=== PATIENT | female | born 1985 | race Caucasian/White ===

== ENCOUNTER 2016-09-07 18:17 | Emergency (ER) | payer OTHER ==
[~2016-09-07] VITALS: Ht 170.2 cm; Wt 83.6 kg
[~2016-09-07 18:17] MED LIST: AMPH20TA5 PO; DOCO200C5 PO; DOCU-41 PO; FERR-83 PO; HYDROcodone-APAP 5-325 PO; IBUP-1827 PO; OMEP20CA11 PO; celexa PO
[2016-09-07 18:20] VITALS: BP 113/69; PULSE 103; RESP 16; O2SAT 100
--- NOTE | 2016-09-07 18:45 | ED.REPORT ---
HPI-Trauma Minor / Fall Date of Service Sep 07, 2016 ED Provider: Eusebio Wells MD Patient is a 30 year old female at 20 weeks with a history of hyperemesis gravidarum who presents to the ED with left arm pain/tingling after a mechanical ground level fall three hours ago. She now reports intermittent left arm numbness and tingling that is now resolving. The patient denies head trauma, loss of consciousness, abdominal trauma, vaginal discharge, vaginal bleeding, or other symptoms. Nursing Notes Stated Complaint: LEFT ARM NUMBNESS/ L&I Chief Complaint: Extremity Trauma Nursing Notes Reviewed: Yes Allergies: Coded Allergies: ketorolac tromethamine (Verified Allergy, Unknown, 09/07/16) Scheduled ([celexa]) 30 PO DAILY Amphet Asp/Amphet/D-Amphet (Adderall) 20 Mg Tablet 20 MG PO DAILY DOCOSAHEXANOIC ACID-Expunged Drug, Do Not Brown ( DHA-Expunged Drug, Do Not Renew!) 200 Mg Capsule 200 MG PO DAILY Docusate Sodium (Colace) 100 Mg Capsule 100 MG PO BID Omeprazole (Omeprazole) 20 Mg Capsule.dr 20 MG PO BID Scheduled PRN ([HYDROcodone-APAP 5-325]) 1 TABLET TABLET 1-2 TABLET PO Q8H PRN PRN For Pain Ferrous Sulfate (Ferrous Sulfate) 325 Mg Tablet 325 MG PO BID PRN PRN anemia Ibuprofen (Ibuprofen) 600 Mg Tablet 600 MG PO Q6H PRN PRN For Mild Pain General Time Seen by MD: 18:44 Chief Complaint Fall, Other (Left Arm Pain) Hx Obtained From: Patient Arrived By: Walk-in Onset Occurred: 1 - 4 hours ago Symptom Duration: Since onset Caused by: Accidental, Fall on ground Location: Arm left Quality: Painful Severity: Current: Moderate Severity: Maximum: Moderate Pertinent Negative: Relieved by nothing Context: Immunizations Unknown Recent Healthcare: No recent doctor visit Past Medical History Past Medical History Hyperemesis gravidarum Denies other Past Surgical History Denies Smoking History Former Smoker Ambulatory Status Independent Review of Systems Review of Systems Note: + Intermittent left arm tingling - Head trauma, abdominal trauma Constitutional: Denies: Fever Respiratory: Denies: Non-productive cough, Shortness of breath Musculoskeletal: Reports: Extremity pain (Left arm) Neurologic: Reports: Numbness (Left arm, intermittent), Denies: Change LOC, Headache Complete sys rev & neg: except as marked. GI: Denies: Diarrhea, Vomiting Female: Denies: Vaginal bleeding - abnl, Vaginal discharge Physical Exam Initial Vital Signs Vital Signs (First) Date Time Temp Pulse Resp B/P Pulse Ox O2 Delivery O2 Flow Rate FiO2 09/07/16 18:20 35.9 103 16 113/69 100 Room Air Initial VS: Reviewed Skin: Warm, Dry, No cyanosis Psychiatric: Mood/affect normal, Behavior normal, Normal thought content General/Constitutional: Awake, Alert, No acute distress Neck: Atraumatic, Supple, Full range of motion, Non-tender Head / Eyes: Atraumatic, Normocephalic ENT: Atraumatic, Airway patent, Mucous membranes moist Respiratory / Chest: Breath sounds NL, Breath sounds = bilat, No respiratory distress Cardiovascular: Heart rate NL, Regular rhythm, Heart sounds NL, No gallop, No murmurs, No rubs, Peripheral circulation NL (Good radial pulses) Abdomen: Soft, Non-tender, No distention Gravid uterus consistent w/ 20 week Back: Atraumatic, Inspection NL, Non-tender, No midline vertebral tend Upper Extremity / MS: Full range of motion (Passive and active), Neurologic intact (Sensation normal), Vascular intact Lower Extremity / Pelvis / MS: Atraumatic, Inspection NL Neurologic: Oriented X3, Speech NL, No motor deficits (5/5 Cocoa Bean Cleaner strength bilaterally), No sensory deficits Re-Eval/Medical Decision Med Decision/Clinical Course Patient is a 30 year old female at 20 weeks with a history of hyperemesis gravidarum who presents to the ED with left arm pain/tingling after a mechanical ground level fall three hours ago. She now reports intermittent left arm numbness and tingling that is now resolving. The patient denies head trauma, loss of consciousness, abdominal trauma, vaginal discharge, vaginal bleeding, or other symptoms. Here in the emergency department the patient is afebrile with stable vital signs and examination as above. She is not having any vaginal bleeding or cramping and monitoring is reassuring. She is neurovascularly intact in the affected extremity. Full range of motion and no evidence of fracture. Presentation seems most consistent with transient peripheral neurapraxia. Patient advised to apply ice packs and hot packs. She will follow-up with her primary care physician. Prior to discharge follow-up and return precautions were reviewed in detail with the patient who verbalized understanding and agreement with the plan. The patient was discharged in stable condition. Re-Evaluation/Progress : Time of Eval: 19:40 Patient Status: Condition improved Re-Evaluation/Progress Note: Discussed with patient physical exam findings, diagnosis, and plan for discharge. Follow-up and return to the ER instructions given. Patient agrees with plan for care and all questions were addressed. Counseled Regarding: Diagnosis, Need for follow-up, When/why to return to ED Discharge & Departure Impression: Primary Impression: Neurapraxia of left upper extremity Additional Impressions: Weeks of gestation: 20 weeks Qualified Code: Z3A.20 - 20 weeks gestation of Fall from ground level Disposition: Home Discharge Condition All VS Reviewed: Yes Condition: Improved Additional Instructions: Thank you for seeking care at the emergency room. It is difficult for us to make definitive diagnoses in the ED but we believe that you stretched a nerve in your arm. Our primary goal today in the ED was to evaluate you for any life-threatening conditions. Your evaluation was reassuring. Your symptoms should resolve on their own. Avoid heavy lifting for 2-3 days. You should follow-up with your primary doctor in the next week. You should return to the ED immediately if you develop vaginal bleeding, abdominal pain, hand weakness, worsened numbness, fevers, vomiting, cough, shortness of breath, chest pain, lightheadedness, weakness or any other concerning signs or symptoms. Thank you for letting us partake in your care today. Referrals: Jl Vincent MD (PCP) Louise Attestation Portions of this note were transcribed by Philly Segundo. I, Dr. Wells, personally performed the history, physical exam, and medical decision-making; I reviewed and confirmed the accuracy of the information in the transcribed note. Signed by: Louise Mooney, 09/07/2016, 22:20 copies to: Jl Vincent MD, Beck O MD Sep 07, 2016 18:45 PHILLY SEGUNDO Sep 07, 2016 19:39
[2016-09-07 19:45] VITALS: BP 105/65; PULSE 73; RESP 22; O2SAT 73
== END 2016-09-07 19:57 | disposition home or self-care (01) ==
LOC: SED 18:17
DX: O9A.212 Injury, poisoning and certain other consequences of external causes complicating pregnancy, second trimester (principal); S44.92XA Injury of unspecified nerve at shoulder and upper arm level, left arm, initial encounter; W18.39XA Other fall on same level, initial encounter; Y93.89 Activity, other specified; Y92.69 Other specified industrial and construction area as the place of occurrence of the external cause; Y99.0 Civilian activity done for income or pay; Z87.891 Personal history of nicotine dependence; Z3A.20 20 weeks gestation of pregnancy

== ENCOUNTER 2016-12-27 09:50 | Inpatient (IN) | payer OTHER ==
[~2016-12-27] VITALS: Ht 170.2 cm; Wt 87.5 kg
[2016-12-27 11:16] LABS: Mean Corpuscular Hemoglobin 31.3 pg (27.0-35.0); Mean Corpuscular Volume 91.9 fL (81-100)
[2016-12-27] MEDS ORDERED: Lactated Ringer's 1,000 ML IV SCH ×3 (11:54→21:51)
[2016-12-27] MEDS ORDERED: Oxytocin 30 Units/500 mL LR 30 UNITS in IV Premix 1 EACH IV PRN (11:55)
[2016-12-27] MEDS ORDERED: diphenhydrAMINE 50 mg Capsule PO PRN (11:55)
--- NOTE | 2016-12-27 12:03 | DRSVH ---
PROCEDURE: US OB 1 OR MORE FETUS LIMITED INDICATIONS: ABRUPTION/DEMISE OUTSIDE/PRIOR DATING DATA: Last menstrual period (LMP): 03/28/2016. LMP-based estimated date of delivery (KALANI): 01/02/2017. First dating scan (date and location): 08/01/2016. Estimated date of delivery (KALANI) from first dating scan: 01/17/2017. TECHNIQUE: Real-time scanning was performed of the fetus, with image documentation and biometric measurements. COMPARISON: [facility], US, US OB FOLLOW UP PER [employer], 08/01/2016, 12:23. FINDINGS: General: A single intrauterine gestation is present. No cardiac activity is seen. Presentation: Vertex left oblique. Placenta: Placental position is low anterior, without previa. OB-DENTIST Ultrasound Procedure Report Summary Fetus Summary Estimated Gestational Age from first dating scan: 37 weeks, 0 days Findings(Amniotic Sac) Amniotic Fluid Index: 19.10 cm Pelvis and Uterus Cervix Length: Not well seen Measurement variability in biometric dating: +/- 7 days from 14 weeks to 15 weeks 6 days gestation, + /- 10 days from 16 weeks to 21 weeks 6 days gestation, +/- 2 weeks from 22 weeks to 27 weeks 6 days g estation, +/- 3 weeks for 28 weeks gestation or later. Other: Not applicable. IMPRESSION: demise. Examination observed by Dr. Vincent. Dictated by: Yomi Barlow M.D. on 12/27/2016 at 12:00 Approved by: Yomi Barlow M.D. on 12/27/2016 at 12:02
[2016-12-27] MEDS ORDERED: Lactated Ringer's 500 ML IV ONE (14:29)
[2016-12-27] MEDS ORDERED: fentaNYL-PF 50 mCg/mL 2 mL Inj IVPUSH PRN (14:30)
[2016-12-27] MEDS ORDERED: Atropine 1 mg/10 mL (Code) Syringe IVPUSH PRN (14:30)
[2016-12-27] MEDS ORDERED: EPHEDrine Sulfate 50 mg/mL Inj IVPUSH PRN (14:30)
[2016-12-27] MEDS ORDERED: fentaNYL 2 mCg/mL-Bupiv 0.125% 100 ML EPIDURAL SCH (14:30)
[2016-12-27] MEDS ORDERED: Ondansetron 2 mg/mL 2 mL Inj IVPUSH PRN (14:30)
--- NOTE | 2016-12-27 15:14 | PCM.HPANE ---
Patient Data Date of Service: Dec 27, 2016 Surgeon Admitting Provider:Jl Vincent MD Attending Provider:Jl Vincent MD Primary Care Physician:Misty Bonds Other Provider:Bushra Killian Anesthesia Reason for Visit Demise DEMISE Ht/WT & BMI Weight (Kilograms): 87.5 Body Mass Index 30.2 Allergies Coded Allergies: ketorolac tromethamine (Verified Allergy, Unknown, 09/07/16) Past Anesthesia History Anesthesia History: Denies:: Abnormal Airway, Anesthesia Reactions Diabetes History Hx Diabetes?: No MRSA MRSA: No Medications Hypertension Medication: No Home Meds Incl Beta Cheryl: No Active Scripts Ferrous Sulfate 325 Mg [id number] Mg PO BID PRN anemia #60 TABLET Ref 2 Prov:Malika Gipson MD 04/21/15 [Hydrocodone/Acetaminophen] ([place] 5-325)1 TABLET TABLET No Conflict Check1-2 Tablet PO Q8H PRN For Pain #30 TABLET Prov:Malika Gipson MD 04/21/15 Ibuprofen 600 Mg Otoshw157 Mg PO Q6H PRN For Mild Pain #30 TABLET Prov:Malika Gipson MD 04/21/15 Docusate Sodium (Colace)100 Mg Dblgren902 Mg PO BID #60 CAPSULE Ref 2 Prov:Malika Gipson MD 04/21/15 Reported Medications Omeprazole 20 Mg Capsule.dr20 Mg PO BID Ref 0 04/19/15 Amphet Asp/Amphet/D-Amphet (Adderall)20 Mg Hfezex68 Mg PO DAILY Ref 0 04/19/15 [celexa] No Conflict Check30 Po Daily 04/19/15 DOCOSAHEXANOIC ACID-Expunged Drug, Do Not Brown ( DHA-Expunged Drug, Do Not Renew!)200 Mg [id number] Mg PO DAILY 05/10/12 History History of ENT Problems?: No HEENT History: Denies:: Abnormal Airway Denture Type: None Teeth Condition: Within Normal Limits Hx of Heart Problems?: No Cardiovascular History: Denies:: Congestive Heart Failure Hypertension Hx of Respiratory Problem?: No Respiratory History: Denies:: Tuberculosis Hx Neurologic Problems?: No Hx of GI Problems?: No Hx of Problems?: No HX of Peritoneal Dialysis: No Female Hx: Positive for:: Currently ( demise at 37 weeks) Hx Musculoskeletal Problems?: No Hx of Psycho/Social Problems?: No Psycho Social History: Positive for:: Hx Depression Hx Surgeries?: No Hx Any Other Health Problems?: Yes Other History: Positive for:: Hospitalization Hx Diabetes: No Hx Alcohol Use: NoHx Substance Use: No Smoking Status: Former Smoker Have You Smoked inLast 12 mo: Yes Stop/Bang Treated for Sleep Apnea?: No Do You Have a CPAP Machine?: No MAYA Risk Assessment: Low Risk, <3 Yes Risk Assessment Category Category 1A: Patient has history of documented sleep apnea, and HAS NOT received any narcotic, sedative or anesthesia administration during this stay. Category 1B: Patient has history of documented sleep apnea, and HAS received any narcotic , sedative or anesthesia administration during this stay Category 2: Patient has SUSPECTED Obstructive Sleep Apnea, and HAS received any narcotic , sedative or anesthesia administration during this stay. Category 3: Patient has SUSPECTED Obstructive Sleep Apnea and HAS NOT received narcotic, sedative or anesthesia administration during this stay. Category 4: Outpatient in Procedural Areas with known sleep apnea or who screen positive for High Risk via the STOP/BANG questionnaire. Exam Exam General Appearance: Alert, Oriented X3, Cooperative HEENT/AIRWAY: Neck Movement (normal) Lungs: Clear to Auscultation, Normal Air Movement Heart: Regular Rate/Rhythm, Normal S1, Normal S2 Meds/Labs/Diagnostics Admission Meds Current Medications Lactated Ringer's (Lr) 1,000 ml @ 125 mls/hr Q8H IV Last administered on t 12:21; Start 12/27/16 at 11:54 Labs Test 12/27/16 10:42 12/27/16 11:56 White Blood Count 5.0th/mm3 (3.8-10.1) Red Blood Count 3.58mil/mm3 (3.90-5.20) Hemoglobin 11.2g/dL (12.0-15.6) Hematocrit 32.9% (35.0-46.0) Mean Corpuscular Volume 91.9fL (81-100) Mean Corpuscular Hemoglobin 31.3pg (27.0-35.0) Mean Corpuscular Hemoglobin Concent 34.0% (32.0-37.0) Red Cell Distribution Width 14.3% (12.3-15.4) Platelet Count 147bil/L (150-400) Urine Opiates Screen Negative Urine Methadone Screen Negative Urine Barbiturates Screen Negative Urine Amphetamines Screen Negative Urine Benzodiazepines Screen Negative Urine Cocaine Metabolite Screen Negative Urine Cannabinoids Screen Negative Plan Impression Patient chart reviewed, patient interviewed and anesthestic plan with risks, benefits, and alternatives discussed, and informed consent obtained. NPO per Anesth. Guidelines: No (OB) ASA Physical Status: ASA2 Mod Systemic Disease Anesthetic Plan: Epidural Bene/Risks/Altern/Consents: Yes HP Complete Prior to Induction: Yes Other epidural for pain control for delivery of 37 week demise Malcolm Curry MD Dec 27, 2016 14:29
[2016-12-27] MEDS ORDERED: Sodium Chloride LOK Flush 10 mL Syringe IVFLUSH SCH (16:30)
--- NOTE | 2016-12-27 16:38 | HP ---
[address] [address] HISTORY AND PHYSICAL PATIENT: MIRIAN BRUNSON : 1985 MR#: [id number] ADMIT: 12/27/2016 JOB ID: [id number] CHIEF COMPLAINT: demise. HISTORY OF PRESENT ILLNESS: The patient is a 31-year-old who came in today for a visit at 37 weeks. She had not been seen since 22 weeks and had generally been feeling well until about five days ago. At that time she was having some contractions. She came to Labor and Delivery and had a reassuring workup and was discharged home with plans for a followup office visit. Today we started catching up on various aspects related to her , including antibody screen given that she is Rh negative. We were going to do RhoGAM. We were going to do random glucose but she had not had any movement for two days. There were no heart tones and a bedside ultrasound at the clinic did not show heart movement. I recommended she come to Labor and Delivery for further evaluation and presumptive induction for near-term demise. At the hospital she had a ultrasound performed which confirmed my bedside ultrasound. There is no obvious placental abnormality. PAST MEDICAL HISTORY: Positive for ADHD and she had taken Adderall in early but discontinued due to inadequate followup. Also depression and anxiety taking citalopram 40 mg daily. SOCIAL HISTORY: A former smoker. No alcohol since . No drug use. History of varicella. but her significant other is in custodial and she is currently living at home with her parents and has twins. OBSTETRIC HISTORY: Twin gestation delivered at 37 weeks by induction with normal spontaneous vaginal delivery on both deliveries. PAST SURGICAL HISTORY: Negative. FAMILY HISTORY: Noncontributory. PHYSICAL EXAMINATION: Heart: Regular rate and rhythm, with no murmurs appreciated. Lungs: Clear to auscultation, with good air movement. Abdomen: Soft and nontender. Ultrasound done at the clinic per above with no heart movement. Cervical exam: Soft, approximately 2 cm, very posterior, 50% effaced. LABORATORY: She had a white blood cell count of 5, hematocrit 32.9, and platelets 147. Urine drug screen was negative for all tests. Antibody screen test was also negative. ASSESSMENT: A 31-year-old at 37 weeks gestation with a demise at term. There is not a clear etiology at this point. We are going to continue to proceed with induction. She is currently taking Pitocin and has requested an epidural for comfort. Will probably proceed with artificial rupture of membranes and continue active management of induction to try and hasten delivery. We have discussed some of the issues surrounding the grief and anxiety and I have also discussed the case with her usual primary provider, ILIR Shepard, at our clinic.
--- NOTE | 2016-12-27 18:45 | PCM.PNOBIP ---
Subjective Date of Service Dec 27, 2016 Delivery plan: Spontaneous Vaginal Delivery Visit History Demise at visit this morning, here for induction. Epidural working well. ROM about 30 minutes ago, clear. No fever/chills. No complaints. Pain Management: Epidural Gastrointestinal: No N/V Labs Laboratory Tests 12/27/16 10:42: White Blood Count 5.0, Red Blood Count 3.58, Hemoglobin 11.2, Hematocrit 32.9, Mean Corpuscular Volume 91.9, Mean Corpuscular Hemoglobin 31.3, Mean Corpuscular Hemoglobin Concent 34.0, Red Cell Distribution Width 14.3, Platelet Count 147 Exam Vital Signs Vital Signs Contraction frequency in minutes: MVUs: Vital Signs: VS reviewed, stable Heart Tracings Heart Tones Baseline bpm Tocometry/IUPC Contraction frequency in minutes: 2 MVUs: Sterile Vaginal Exam Not performed at this visit. Exam General: Alert, Oriented X3, Cooperative, No Acute Distress OB Intrapartum Assessment/Plan Intrapartum plan: Continue expected management Pain Evaluation: Adequate Pain Control Jl Vincent MD Dec 27, 2016 18:45
[2016-12-27] MEDS ORDERED: HYDROcodone-APAP 5-325 mg Tablet PO PRN (21:55)
[2016-12-27] MEDS ORDERED: Carboprost 250 mCg/mL Inj IM PRN (21:55)
[2016-12-27] MEDS ORDERED: Oxytocin 10 Unit/mL Inj IM PRN (21:55)
[2016-12-27] MEDS ORDERED: Methylergonovine 0.2 mg/mL Inj IM PRN (21:55)
[2016-12-27] MEDS ORDERED: Hemorrhage Kit, Post Partum XX ONE (21:55)
--- NOTE | 2016-12-27 22:59 | OP ---
[address] [address] OPERATIVE REPORT PATIENT: MIRIAN BRUNSON : 1985 MR#: [id number] ADMIT: 12/27/2016 JOB ID: [id number] DATE OF SURGERY: 12/27/2016 PREOPERATIVE DIAGNOSIS(ES): POSTOPERATIVE DIAGNOSIS(ES): SURGEON: Jl Vincent MD DELIVERY NOTE: 1. Delivery: Normal spontaneous vaginal delivery over an intact perineum with a known demise. 2. Anesthesia: Epidural anesthesia. 3. Physician: Jl Vincent MD. 4. Baby: Generally normal appearing baby with relative recent demise based on visual exam and a twisted cord insertion and apparent cord accident without other gross abnormalities. 5. Uterus: The cord was friable so manual exploration of the uterus was performed. Placenta was extracted without difficulty as a complete unit. 6. Description: The patient is a 31-year-old G3, P2 with previous twins and hemmorhage and Rh negative status. complicated by Social Support Issues, Hx of Depression and ADHD.. Mother had been on lost to followup for care and had not been seen since 22 weeks, but came this morning for her visit. She had a labor and delivery visit for contractions a few days earlier with reassuring workup at that time. This morning, she had said the baby had not moved for a couple of days and there were no heart tones and ultrasound in the clinic showed no heartbeat, and she was sent to the hospital for induction. Induction proceeded normally with Pitocin augmentation and artificial rupture of membranes. When I was called for delivery the baby was and was delivered in two pushes without difficulty. The cord was transected and cut. There was difficulty with the placenta delivery and the cord was friable and falling apart so manual exploration and extraction of the placenta was performed without difficulty. Bimanual massage was performed. There is no significant bleeding at this point. Mother will be spending time with the baby now. Future disposition of the baby is not yet determined. [facility]
[2016-12-27] MEDS: Pantoprazole 20 mg ER24 Tablet PO SCH (23:24)
--- NOTE | 2016-12-28 01:38 | PCM.ANEP1 ---
Post Anesthesia PACU Phase 1 Assessment Date of Service: Dec 27, 2016 Anesthetic Administered: Epidural Level of Alertness: Awake, talking CAMACHO's with Equal Strength: Yes (continued numb right leg) Pain: No Nausea or Vomiting: No CV Function & Hydration Stable: Yes Airway Device: Oxygen Delivery: Room Air Lungs: Normal Air Movement Dermatome Level: L3,4 (Thigh) PACU Phase 2 Assessment Complications: No Follow up Care: N/A Patient Instructions Provided: N/A Comments Expect resolution of numb right leg with stopping of epidural pump Malcolm Curry MD Dec 28, 2016 01:38
[2016-12-28 06:48] LABS: Mean Corpuscular Volume 93.5 fL (81-100)
--- NOTE | 2016-12-28 07:02 | PCM.DC.OB ---
Obstetrical Discharge Summary Date of Service Dec 28, 2016 Date of hospital admission Dec 27, 2016 at 10:40 Date of Discharge: Dec 28, 2016 Providers Admitting Physician: Jl Vincent MD Primary Care Physician: Misty Bonds Attending Physician: Jl Vincent MD Problems: (1) demise, greater than 22 weeks, antepartum Qualifiers: Fetus number: single or unspecified fetus Qualified Code: O36.4XX0 - Maternal care for intrauterine , not applicable or unspecified Plan: Not planning autopsy. Recovering well from delivery. Status: Resolved ICD Code: O36.4XX0 (2) Depression affecting in third trimester, antepartum Plan: Recommend very close outpatient followup with ILIR Shepard. Social work to evaluate resources today. Status: Chronic ICD Code: O99.343 (3) Rh negative status during in third trimester Plan: Antibody screen negative. RhoGAM today. Status: Acute ICD Code: O09.893 Invasive procedures of Demise. Pathology Placenta to pathology. Not intending autopsy. Brief History and Physical: 31yo , 37w, lost to followup during care since 22w, had demise diagnosed at visit yesterday morning. complicated by ADHD, Depression, Rh Negative status. ([celexa]) 30 PO DAILY (Reported) ([HYDROcodone-APAP 5-325]) 1 TABLET TABLET 1-2 TABLET PO Q8H PRN PRN For Pain Prescribed by: GEORGE LOZANO MD Amphet Asp/Amphet/D-Amphet (Adderall) 20 Mg Tablet 20 MG PO DAILY (Reported) DOCOSAHEXANOIC ACID-Expunged Drug, Do Not Brown ( DHA-Expunged Drug, Do Not Renew!) 200 Mg Capsule 200 MG PO DAILY (Reported) Docusate Sodium (Colace) 100 Mg Capsule 100 MG PO BID Prescribed by: GEORGE LOZANO MD Ferrous Sulfate (Ferrous Sulfate) 325 Mg Tablet 325 MG PO BID PRN PRN anemia Prescribed by: GEORGE LOZANO MD Ibuprofen (Ibuprofen) 600 Mg Tablet 600 MG PO Q6H PRN PRN For Mild Pain Prescribed by: GEORGE LOZANO MD Omeprazole (Omeprazole) 20 Mg Capsule.dr 20 MG PO BID (Reported) Discharge Diet: No restrictions Discharge Activity-General: No restrictions, Balance rest and activity, Activity as pain allows, Activity as energy allows Jl Vincent MD Dec 28, 2016 07:02
--- NOTE | 2016-12-28 07:11 | PCM.DIOB ---
Obstetrical Disch Instruction Dates of Hospitalization Date of Hospital Admission Dec 27, 2016 at 10:40 Providers Admitting Physician: Jl Vincent MD Primary Care Physician: Misty Bonds Attending Physician: Jl Vincent MD Discharge Diagnosis Problems: (1) demise, greater than 22 weeks, antepartum Qualifiers: Fetus number: single or unspecified fetus Qualified Code: O36.4XX0 - Maternal care for intrauterine , not applicable or unspecified Plan: Please see ILIR Shepard to continue discussion of grief, depression, anxiety. Status: Resolved ICD Code: O36.4XX0 (2) Depression affecting in third trimester, antepartum Status: Chronic ICD Code: O99.343 (3) Rh negative status during in third trimester Plan: RhoGAM today. Status: Acute ICD Code: O09.893 Diet Discharge Diet: No restrictions Dressing and Incisional Care Hygiene: May shower Follow Up Plan Follow Up Plan Followup in the next week with ILIR Shepard. Followup with Dr. Vincent at 6 weeks for check. Follow-up Provider (F9): Jl Vincent MD Mid-level Provider (F9): Misty Bonds Follow-up appointment: Weeks (1) Call your provider for: Fever or Chills, Shortness of breath, Heavy vaginal bleeding, Heavy bleeding, Epigastric pain, Excessive constipation, Vaginal discomfort, Red painful breasts Jl Vincent MD Dec 28, 2016 07:11
[2016-12-28] MEDS ORDERED: IBUP800T28 PO (07:14)
[2016-12-28] MEDS ORDERED: Amphetamines (Mixed) XR 10 mg ER24 Capsule PO ONE ×2 (08:40→09:00)
[2016-12-28] MEDS: Pantoprazole 20 mg ER24 Tablet PO SCH (09:17)
--- NOTE | 2016-12-28 11:44 | NUR ---
Social work Note Indu Murrieta is a 31 yr old who suffered from Demise at 37 weeks. Pt has twin 18 month olds at home. WOOD FINISHER APPRENTICE met with pt - pt's mother and sister as well as twin children are in the room. She was able to take photos of baby with [employer]. Pt lives at home with her parents and children. FOB is currently incarcerated and Pt states that he is serving a long sentence. She has great support from her family and friends. She states that she will be able to depend on them for much support in the future. WOOD FINISHER APPRENTICE active listened, provided education on grief and mental health. WOOD FINISHER APPRENTICE provided handouts and grief support group - [facility]neys with a chapter that meets in [place]. WOOD FINISHER APPRENTICE encouraged Pt to follow closely with MD for follow up. Pt denies any needs - WOOD FINISHER APPRENTICE will continue to follow if needs arise. Pt planning to d/c home today with family. ANDREY Flynn
== END 2016-12-28 15:30 | disposition home or self-care (01) | DRG 767 ==
LOC: FBC 10:40
PROVIDERS: ADMIT Family Medicine; ATTEND Family Medicine
PROC: 10E0XZZ Delivery of Products of Conception, External Approach (ICD-10-PCS; principal; 2016-12-27)
PROC: 10D17ZZ Extraction of Products of Conception, Retained, Via Natural or Artificial Opening (ICD-10-PCS; 2016-12-27)
PROC: 3E033VJ Introduction of Other Hormone into Peripheral Vein, Percutaneous Approach (ICD-10-PCS; 2016-12-27)
PROC: 10907ZC Drainage of Amniotic Fluid, Therapeutic from Products of Conception, Via Natural or Artificial Opening (ICD-10-PCS; 2016-12-27)
PROC: 3E0234Z Introduction of Serum, Toxoid and Vaccine into Muscle, Percutaneous Approach (ICD-10-PCS; 2016-12-27)
DX: O36.4XX0 Maternal care for intrauterine death, not applicable or unspecified (principal); Z37.1 Single stillbirth; F32.9 Major depressive disorder, single episode, unspecified; Z3A.37 37 weeks gestation of pregnancy; O99.344 Other mental disorders complicating childbirth; O69.3XX0 Labor and delivery complicated by short cord, not applicable or unspecified; O73.0 Retained placenta without hemorrhage

== ENCOUNTER 2017-01-26 14:09 | Inpatient (IN) | payer OTHER ==
[~2017-01-26] VITALS: Ht 170.2 cm; Wt 79.5 kg
[~2017-01-26 14:09] MED LIST changes: +IBUP800T28 PO
[2017-01-26 14:11] VITALS: BP 127/87; PULSE 104; RESP 20; O2SAT 95
[2017-01-26] MEDS ORDERED: 0.9% Sodium Chloride 1,000 ML IV ONE ×3 (14:24→15:25)
[2017-01-26] MEDS ORDERED: Ondansetron 2 mg/mL 2 mL Inj IVPUSH ONE ×2 (14:30→15:25)
--- NOTE | 2017-01-26 14:32 | ED.REPORT ---
HPI-General Illness Date of Service Jan 26, 2017 ED Provider: Dr. Candice Griggs is a 31-year-old female presenting to the emergency department with a chief complaint of numbness/muscle spasms. Patient complains of numbness in her arms and legs, nausea, vomiting, dehydration over the last several days. She reports she's been unable to keep any fluids or food down. Denies fever, chills , abdominal pain, diarrhea, urinary symptoms, vaginal bleeding or discharge. Patient had a stillborn childbirth 1 month ago. Nursing Notes Stated Complaint: NUMBNESS Chief Complaint: Female Abdominal Pain Nursing Notes Reviewed: Yes Allergies: Coded Allergies: latex (Verified Allergy, Severe, rash, 01/26/17) ketorolac tromethamine (Verified Allergy, Unknown, 01/26/17) Scheduled ([celexa]) 30 PO DAILY Amphet Asp/Amphet/D-Amphet (Adderall) 20 Mg Tablet 20 MG PO DAILY DOCOSAHEXANOIC ACID-Expunged Drug, Do Not Brown ( DHA-Expunged Drug, Do Not Renew!) 200 Mg Capsule 200 MG PO DAILY Docusate Sodium (Colace) 100 Mg Capsule 100 MG PO BID Omeprazole (Omeprazole) 20 Mg Capsule.dr 20 MG PO BID Scheduled PRN ([HYDROcodone-APAP 5-325]) 1 TABLET TABLET 1-2 TABLET PO Q8H PRN PRN For Pain Ferrous Sulfate (Ferrous Sulfate) 325 Mg Tablet 325 MG PO BID PRN PRN anemia Ibuprofen (Ibuprofen) 600 Mg Tablet 600 MG PO Q6H PRN PRN For Mild Pain Ibuprofen (Ibuprofen) 800 Mg Tablet 800 MG PO Q6H PRN PRN For Pain General Time Seen by MD: 14:19 Chief Complaint Other (Muscle spasms) Hx Obtained From: Patient Arrived By: Walk-in Sudden in Onset?: No Onset Occurred: 3 days ago Symptom Duration: Since onset Severity: Current: No pain currently Severity: Maximum: No pain Recent Healthcare: No recent doctor visit, No recent hospitalization Similar Sx Previous: No Past Medical History Past Medical History Hyperemesis gravidarum Recent stillborn delivery last month Past Surgical History Denies Smoking History Former Smoker Ambulatory Status Independent Review of Systems Reports muscle spasms Full Review of Systems Constitutional: Denies: Chills, Fever GI: Reports: Nausea, Vomiting, Denies: Abdominal pain, Diarrhea Female: Denies: Dysuria, Hematuria, Incontinence, Urinary frequency, Urinary urgency, Urination decreased, Urination increased, Vaginal bleeding - abnl, Vaginal discharge Neurologic: Reports: Numbness Complete sys rev & neg: except as marked. Physical Exam Vital Signs Vital Signs Date Time Temp Pulse Resp B/P Pulse Ox O2 Delivery O2 Flow Rate FiO2 01/26/17 14:11 36.6 104 20 127/87 95 Room Air Initial VS: Reviewed General/Constitutional: Well-developed, Well-nourished Neck: Supple, Non-tender, Full range of motion Respiratory: Breath sounds normal, Clear to auscultation, No respiratory distress Cardiovascular: Regular rate & rhythm, Heart sounds normal, Intact distal pulses Abdomen / GI: Soft, Non-tender, No guarding, No rebound, No distention Skin: Warm, Dry, No cyanosis Neurologic: Alert, Oriented, Nonfocal Head / Eyes: Atraumatic, Normocephalic, PERRL, EOMI Twitching of her left eye, no clonis ENT: Atraumatic, Airway patent Mouth: Positive: Mucous membranes dry Dry, cracked lips Upper Extremities Upper Extremity / MS: No deformity, Neurologic intact, Vascular intact Carpal spasm Psychiatric: Cognitive function NL, Judgment/insight NL, Thought content NL Abnormal Mood/Affect: Positive: Flat affect Interpretation & Diagnostics VBG: pH: 7.429 pCO2: 42 pO2: 27.0 cCHO3: 27.6 cBase: 3.33 Lab Results Interpretation Result Diagram: 01/26/17 1425 01/26/17 1425 Test 01/26/17 14:25 White Blood Count 6.7th/mm3 (3.8-10.1) Red Blood Count 4.59mil/mm3 (3.90-5.20) Hemoglobin 14.3g/dL (12.0-15.6) Hematocrit 40.6% (35.0-46.0) Mean Corpuscular Volume 88.5fL (81-100) Mean Corpuscular Hemoglobin 31.2pg (27.0-35.0) Mean Corpuscular Hemoglobin Concent 35.2% (32.0-37.0) Red Cell Distribution Width 13.7% (12.3-15.4) Platelet Count 173bil/L (150-400) Neutrophils (%) (Auto) 63.4% (40-74) Lymphocytes (%) (Auto) 21.7% (14-46) Monocytes (%) (Auto) 13.7% (4-12) Eosinophils (%) (Auto) 0.5% (0-5) Basophils (%) (Auto) 0.5% (0-3) Sodium Level 135mEq/L (134-144) Potassium Level 2.7mEq/L (3.5-5.2) Chloride Level 86mEq/L (97-108) Carbon Dioxide Level 23mmol/L (18-29) Blood Urea Nitrogen 3mg/dL (6-20) Creatinine 0.80mg/dL (0.57-1.00) Estimat Glomerular Filtration Rate 121mL/min (>59) Glucose Level 103mg/dL (60-99) Lactic Acid Level 6.7mmol/L (0.4-2.0) Calcium Level 7.2mg/dL (8.5-10.1) Ionized Calcium (Calculated) 3.04mg/dL (3.5-5.2) Magnesium Level 0.7mg/dL (1.6-2.6) Total Bilirubin 1.7mg/dL (0.0-1.2) Aspartate Amino Transf (AST/SGOT) 278U/L (0-50) Alanine Aminotransferase (ALT/SGPT) 119U/L (0-32) Alkaline Phosphatase 169U/L (25-150) Total Creatine Kinase 814U/L (21-215) Total Protein 7.4g/dL (6.4-8.4) Albumin 3.9g/dL (3.4-5.0) Lipase 89U/L (13-60) Procalcitonin 0.06ng/mL (0.00-0.08) Alcohols < 10mg/dL (0-10) ECG Interpretation ECG Interpretation: Prolonged QT interval because of her hypocalcemia. Rate of 144. QT 390. QTc 604. Time: 16:07 Interpreted by: ED physician Re-Eval/Medical Decision Time of Eval: 15:41 Patient Status: Condition improved Re-Evaluation/Progress Note: Recheked by Dr. Harvey. Pt reports that she started feeling sick a few days ago, and began vomiting. Pt reports vomiting over ten times today and yesterday. Denies diarrhea or any pain. She takes zoloft, citalopram, adderol, and omeprazole. She states that she had one alcoholic beverage a few days ago, but denies any alcohol use since then, and denies drug use. The muscle spasms began a little bit yesterday, but they increased today. Discussed likely admission. Time of Eval: 16:20 Patient Status: Condition improved Re-Evaluation/Progress Note: Riccardo, her nurse, asked the pt about any drug or alcohol use while the pt's mother was not in the room and the pt still denies. Time of Eval: 16:23 Patient Status: Condition improved Re-Evaluation/Progress Note: Improvement in her carpal spasm. Explained to her her laboratory findings and admission to the hospital. Consultation : Referral / Consult Name: Oleg Lomeli MD Consulted With: Hospitalist Call Returned at: 16:31 Part Maker: Will see patient, Agrees with plan, Accepts admit Counseled Regarding: Diagnosis, Lab results, Need for admission Discharge & Departure Primary Impression: Hypocalcemia Additional Impressions: Hypomagnesemia Hypokalemia Vomiting Vomiting type: unspecified Vomiting Intractability: unspecified Nausea presence: unspecified Qualified Code: R11.10 - Vomiting, unspecified Disposition: ADMITTED TO HOSPITAL Discharge Condition All VS Reviewed: Yes Condition: Improved Referrals: Misty Bonds (PCP) Crit Care Except Billable Proc Time Spent: 30-74 minutes (42) Services Performed: Patient management by me, Time spent at bedside, Reviewing test results, Reviewing imaging, Discussing patient care, Documentation in record, Time with fam/surrogate Scribe Attestation Portions of this note were transcribed by Bridget Queen. I, Dr. Harvey personally performed the history, physical exam and medical decision-making; I reviewed and confirmed the accuracy of the information in the transcribed note. Signed by: Louise Georges, 01/26/2017. copies to: Misty Bonds Seth PA-C Jan 26, 2017 14:32 BRIDGET QUEEN Jan 26, 2017 15:47
[2017-01-26 14:35] LABS: BASOPHILS % (AUTO) 0.5 % (0-3); EOSINOPHILS % (AUTO) 0.5 % (0-5); MONOCYTES % (AUTO) 13.7 % (4-12); Mean Corpuscular Hemoglobin 31.2 pg (27.0-35.0); Mean Corpuscular Volume 88.5 fL (81-100); NEUTROPHILS % (AUTO) 63.4 % (40-74); Platelet Count 173 bil/L (150-400)
[2017-01-26] MEDS ORDERED: KCl 40 mEq/D5W 500 mL 40 MEQ in IV Premix 1 EACH IV ONE (15:25)
[2017-01-26] MEDS ORDERED: Calcium GLUCO 10% (mEq) Inj 4.65 MEQ in Dextrose 5% 50 ML IV ONE (16:00)
--- NOTE | 2017-01-26 16:00 | ABG ---
DateTimeAnalyzed 15:52:00 -_ pH ____7.429 - 7.320 7.420 pCO2 ___42.4__ -mmHg 41.0 51.0 pO2 ___27.0__ -mmHg 24.0 40.0 HCO3- ___27.6__ -mmol/L ABE ____3.3__ -mmol/L tHb ___12.9__ -g/dL 12.0 18.0 O2Hb ___40.3__ -% COHb ____1.0__ -% 0.0 1.5 MetHb ____1.1__ -% 0.4 1.5 sO2 ___41.2__ -% FIO2 ___21.0__ -% Drawn By as - Date/Time Notified____ 15:59:00 -_ Notified By ams - Notified Whom dr Harvey - B 756 -mmHg tO2 ____7.3__ -Vol% Casimiro test N/A -
[2017-01-26 16:06] LABS: Magnesium 0.7 mg/dL (1.6-2.6)
[2017-01-26] MEDS ORDERED: Magnesium Sulf 2 Gm/50mL Water 2 GM in IV Premix 1 EACH IV ONE (16:10)
[2017-01-26] MEDS ORDERED: DEXTROSE 5% IV ONE (16:45)
[2017-01-26] MEDS ORDERED: CALCIUM GLUCO IV ONE (16:45)
--- NOTE | 2017-01-26 17:17 | PCM.HPMED ---
Subjective Date of Service Jan 26, 2017 Primary Provider: Admitting Physician: Primary Care Physician: Misty Bonds Attending Physician: Admit Status: From the Emergency Department Chief Complaint: Numbness/muscle spasms History of Present Illness: Indu Murrieta is a 31 yr old female past medical history of ADHD and depression who presents to the ED with complaints of muscle spasms and numbness of her upper extremities and lower extremities bilaterally. She states that it started yesterday but has progressively gotten worse today, with her hands and legs clenching, making it difficult for her to walk. In addition, she reports nausea, vomiting, and dehydration but denies diarrhea and abdominal pain that started about 3 days ago. She has been unable to tolerate oral intake and her appetite has decreased. She notes that she has had similar symptoms in the past when she was dehydrated but less severe. She reports that she was started on Zoloft on and has been tapering off of citalopram. She does not recall the Zoloft dose that she takes but notes that she is now taking 20 mg of citalopram. She states that she had one alcoholic beverage a few days ago, but denies any alcohol use since then, and denies drug use About one month ago she had a stillborn childbirth. On review of systems, she denies fevers, chills, headaches, visual changes, hearing changes, chest pain, shortness of breath, abdominal pain, constipation, diarrhea, melena, hematuria and urinary problems. She has not had any ill contacts in the recently. In the ED vitals signs were as follows: TEmp 36.6, Pulse 104, RR 20, BP 127/87, O2 95% on RA. ABGs reveal pH: 7.429, pCO2: 42, pO2: 27.0, pHCO3: 27.6, cBase: 3.33. EKG reveals: Prolonged QT interval because of her hypocalcemia. Rate of 144. QT 390. QTc 604. Labs were significant for potassium of 2.7, Calcium of 7.2 , Magnesium of 0.7, Lactic acid of 6.7, AST of 278, ALT of 119, Alk Phos of 169 , Total CK 814. Toxicology was negative for salicylates, acetaminophen, alcohol. In the ED, she received 2L of fluid, Calcium gluconate, 2g Magnesium and Potassium replacements. Review of Systems: The comprehensive review of systems was conducted with the patient and found to be negative except as above in the history of present illness. Allergies Coded Allergies: latex (Verified Allergy, Severe, rash, 01/26/17) ketorolac tromethamine (Verified Allergy, Unknown, 01/26/17) Home Medications Adderall 20 mg daily Omeprazole 20 mg twice a day Ferrous sulfate 325 mg twice a day Ibuprofen 600-800 mg every 6 hours PRN Hydrocodone 5-325 every 8 hours PRN Celexa 20 mg daily Zoloft PMH ADHD Depression Hyperemesis gravidarum Recent stillborn delivery last month Surgical History Jasper teeth removal Family History Family history is significant for maternal grandfather with cardiovascular disease, maternal grandmother with colon cancer, father's sister with diabetes Social History Hx Alcohol Use: No Hx Substance Use: No Smoking Status: Former Smoker Exam Vital Signs Vital Sign - Last Date Time Temp Pulse Resp B/P Pulse Ox O2 Delivery O2 Flow Rate FiO2 01/26/17 14:11 36.6 104 20 127/87 95 Room Air Exam General: Patient is lying comfortably on bed, AAOX3, not in acute distress, cooperative . HEENT: head normocephalic and atraumatic, PERRLA, EOMI, no scleral icterus, noninjected conjunctiva, dry mucous membranes Neck: neck supple, non-tender, no lymphadenopathy, trachea midline, no JVD CV: regular rate and rhythm, s1 and s2 heard, radial pulses 2+ and equal bilaterally, no rubs, murmurs or gallops, no edema Lungs: Clear to auscultation bilaterally, no wheezes, rales or rhonchi, no increased work of breathing Abdomen: normoactive bowel sounds on 4Q, soft, non-distended, non-tender to palpation, no organomegally, Skin: warm and dry Musculoskeletal: imposer strength of UE reduced bilaterally, full ROM bilaterally Neuro: Grossly neurologically intact, cranial nerves II through XII intact, no dyskinesia, dysmetria, or dysdiadochokinesia noted, sensation intact in extremities Psych: Normal mood and affect Lab and Diagnostics Labs Laboratory Tests Test 01/26/17 14:25 01/26/17 16:28 01/26/17 17:32 White Blood Count 6.7th/mm3 (3.8-10.1) Red Blood Count 4.59mil/mm3 (3.90-5.20) Hemoglobin 14.3g/dL (12.0-15.6) Hematocrit 40.6% (35.0-46.0) Mean Corpuscular Volume 88.5fL (81-100) Mean Corpuscular Hemoglobin 31.2pg (27.0-35.0) Mean Corpuscular Hemoglobin Concent 35.2% (32.0-37.0) Red Cell Distribution Width 13.7% (12.3-15.4) Platelet Count 173bil/L (150-400) Neutrophils (%) (Auto) 63.4% (40-74) Lymphocytes (%) (Auto) 21.7% (14-46) Monocytes (%) (Auto) 13.7% (4-12) Eosinophils (%) (Auto) 0.5% (0-5) Basophils (%) (Auto) 0.5% (0-3) Sodium Level 135mEq/L (134-144) 136mEq/L (134-144) Potassium Level 2.7mEq/L (3.5-5.2) 2.4mEq/L (3.5-5.2) Chloride Level 86mEq/L (97-108) 93mEq/L (97-108) Carbon Dioxide Level 23mmol/L (18-29) 23mmol/L (18-29) Blood Urea Nitrogen 3mg/dL (6-20) Creatinine 0.80mg/dL (0.57-1.00) Estimat Glomerular Filtration Rate 121mL/min (>59) Glucose Level 103mg/dL (60-99) Lactic Acid Level 6.7mmol/L (0.4-2.0) Calcium Level 7.2mg/dL (8.5-10.1) Ionized Calcium (Calculated) 3.04mg/dL (3.5-5.2) Magnesium Level 0.7mg/dL (1.6-2.6) Total Bilirubin 1.7mg/dL (0.0-1.2) Aspartate Amino Transf (AST/SGOT) 278U/L (0-50) Alanine Aminotransferase (ALT/SGPT) 119U/L (0-32) Alkaline Phosphatase 169U/L (25-150) Total Creatine Kinase 814U/L (21-215) Total Protein 7.4g/dL (6.4-8.4) Albumin 3.9g/dL (3.4-5.0) Lipase 89U/L (13-60) Procalcitonin 0.06ng/mL (0.00-0.08) Salicylates Level < 3.0ug/mL (30-250) Acetaminophen Level < 15.0ug/mL Rx (10-25) Alcohols < 10mg/dL (0-10) Parathyroid Hormone (Intact) 40pg/mL (15-65) Hold Boss Top Tube Received (Received) Result Diagram: 01/26/17 1425 01/26/17 1628 Additional Diagnostics: DateTimeAnalyzed 15:52:00 -_ pH ____7.429 - 7.320 7.420 pCO2 ___42.4__ -mmHg 41.0 51.0 pO2 ___27.0__ -mmHg 24.0 40.0 HCO3- ___27.6__ -mmol/L ABE ____3.3__ -mmol/L tHb ___12.9__ -g/dL 12.0 18.0 O2Hb ___40.3__ -% COHb ____1.0__ -% 0.0 1.5 MetHb ____1.1__ -% 0.4 1.5 sO2 ___41.2__ -% FIO2 ___21.0__ -% Drawn By as - Date/Time Notified____ 15:59:00 -_ Notified By ams - Notified Whom dr Harvey - B 756 -mmHg tO2 ____7.3__ -Vol% Casimiro test N/A - Assessment & Plan Indu is a 31-year-old female presenting to the emergency department with a chief complaint of numbness/muscle spasms. Possible subacute serotonin syndrome, present on arrival, active Patient complains of nausea/vomiting, muscle rigidity. In combination with elevated liver enzymes and lactic acidosis and her recent history of cross tapering SSRIs However less likely with no history of fevers No other changes in medications noted - CK 814 on arrival -Hold antidepressant medications Hypocalcemia associated with long QT syndrome, present on arrival, active Unclear etiology, QTc 607 on arrival - Calcium 7.2 on arrival - Calcium gluconate infusions 2 - Avoid QT prolonging agents - Recheck at 1999, night team aware, recheck in the a.m. Severe hypokalemia, present on arrival, active - Potassium 2.7 on arrival - Potassium chloride running - Calcium gluconate infusions bringing down, continue to monitor - Recheck at 1999, night team aware, recheck in the a.m. Hypomagnesemia, present on arrival, active - Magnesium 0.7 on arrival - Patient initially given 2 g magnesium in the ED - 4 g magnesium running currently - Recheck at 1999, night team aware, recheck in the a.m. Lactic acidosis with High anion gap metabolic acidosis, present on arrival, active Unclear etiology, possibly secondary to liver injury and/or serotonin syndrome Vital signs within normal limits, CBC unremarkable - Patient received 2 L of fluid in ED - Multiple electrolytes currently running - Continue to monitor lactic acid levels Acute liver injury, present on arrival, active Campbell-elevation of liver enzymes AST 278, a OT 119, alkaline phosphatase 169, bilirubin 1.7, lipase 89 Unknown etiology at this time, possibly secondary to serotonin syndrome or acute liver toxicity - U tox negative - Serum tox negative - Limited abdominal ultrasound pending - Hepatitis panel pending Depression, present on arrival, active -Hold antidepressant medications Disposition: Patient admitted under inpatient status with expected length of stay > 2 midnights for severity of present symptoms, complexities of treatment plan and risk for adverse event VTE Prophylaxis: Sub-Q Heparin (Unfractionated) Resuscitation Status: CPR: Attempt Resuscitation Attending Statement The patient was seen and examined together with Drs. Snider and on 01/26 and I agree with the history, exam and plan as outlined in the note above. . copies to: Vamshi,Stef Wong DO Jan 26, 2017 17:17 Kathy Snider DO Jan 26, 2017 18:13 Oleg Lomeli MD Jan 27, 2017 08:02
[2017-01-26 17:20] VITALS: BP 128/79; PULSE 68; RESP 22; O2SAT 98
[2017-01-26] MEDS ORDERED: Magnesium Sulf 4 Gm/100 mL H2O 4 GM in IV Premix 1 EACH IV ONE (17:45)
--- NOTE | 2017-01-26 18:18 | NUR ---
From ED to CCU #2019 at 1720 via gilma, accompanied by her mother. A/O, continued retching despite Zofran given in ED; denies pain at this time. BP stable, afebrile, SR with PVCs on tele. On RA, appears in no distress. Voided in ED, UA sent per RN. Potassium and magnesium riders infusing, IVFs/NS; 2nd calcium rider started upon arrival. Will continued to monitor; follow-up labs ordered for 8 p.m. noted.
[2017-01-26 19:18] VITALS: BP 120/83; PULSE 60; RESP 21; O2SAT 100
[2017-01-26] MEDS ORDERED: FERR-83 PO (20:14)
[2017-01-26] MEDS ORDERED: CITA20TA PO (20:14)
[2017-01-26] MEDS ORDERED: SERT25TA2 PO (20:14)
[2017-01-26 20:28] LABS: APPEARANCE,URINE HAZY (CLEAR,HAZY); COLOR,URINE DARK YELLOW (YELLOW); OCCULT BLOOD,URINE TRACE (NEGATIVE); PH,URINE 6.5 (5.0-8.0)
[2017-01-26] MEDS: Heparin 5,000 Unit/mL Inj SUBQ SCH (20:42)
[2017-01-26] MEDS: Pantoprazole 20 mg ER24 Tablet PO SCH (21:23)
[2017-01-26 23:26] LABS: Magnesium 3.3 mg/dL (1.6-2.6); Phosphorus 2.8 mg/dL (2.5-4.9)
[2017-01-27] VITALS (9 sets, daily range): BP systolic 107–134; BP diastolic 63–92; PULSE 59–73; RESP 15–25; O2SAT 95–99
[2017-01-27] MEDS: 0.9% Sodium Chloride 1,000 ML IV SCH ×3 (00:18→17:59)
[2017-01-27] MEDS: KCl 40 mEq/500 mL D5W (K < 3 & Creat <2) IV SCH ×2 (00:19→04:32)
--- NOTE | 2017-01-27 04:18 | NUR ---
Labs / nausea MD notified of abnormal labs, Replacement protocol is ordered as well as maintenance fluid. Patient denies cramping, spasms, or other signs of abnormal electrolytes other than occasional PVC on telemetry. Patient has occasional nausea and small amounts of emesis, sometimes occurs after drinking or taking bites of food. Patient encouraged to stick to ice chips at this time. Addendum: 01/27/17 at 0608 by JOHANA BLAIR RN updated on AM labs.
[2017-01-27] MEDS: Heparin 5,000 Unit/mL Inj SUBQ SCH ×3 (04:32→20:00)
[2017-01-27 04:59] LABS: BASOPHILS % (AUTO) 0.6 % (0-3); EOSINOPHILS % (AUTO) 1.6 % (0-5); MONOCYTES % (AUTO) 11.8 % (4-12); Mean Corpuscular Hemoglobin 30.4 pg (27.0-35.0); Mean Corpuscular Volume 89.1 fL (81-100); NEUTROPHILS % (AUTO) 49.6 % (40-74); Platelet Count 110 bil/L (150-400)
[2017-01-27 05:35] LABS: Magnesium 2.3 mg/dL (1.6-2.6); Phosphorus 1.8 mg/dL (2.5-4.9)
[2017-01-27] MEDS: Pantoprazole 20 mg ER24 Tablet PO SCH ×2 (07:36→20:20)
[2017-01-27 10:42] LABS: Magnesium 1.9 mg/dL (1.6-2.6); Phosphorus 1.8 mg/dL (2.5-4.9)
[2017-01-27] MEDS ORDERED: KCl 40 mEq/D5W 500 mL 40 MEQ in IV Premix 1 EACH IV ONE (11:10)
[2017-01-27 12:09] LABS: Creatine Kinase 804 U/L (21-215)
--- NOTE | 2017-01-27 13:32 | NUR ---
P: Nausea and vomiting I: Pt denies nausea and vomiting. Ate her breakfast without difficulty. Potassium recheck was 2.[address] España notified and orders received. IVF infusing without redness or swelling at the site. Voiding qs. VSS. NSR. Afebrile. Room air. Denies pain. Updated on pt's condition and plan of care. E: Stable S: Alert and Oriented. Uses call light appropriately. Frequent rounding.
[2017-01-27 14:16] LABS: APPEARANCE,URINE CLEAR (CLEAR,HAZY); COLOR,URINE DARK YELLOW (YELLOW); OCCULT BLOOD,URINE NEGATIVE (NEGATIVE); PH,URINE 6.5 (5.0-8.0)
[2017-01-27 14:33] LABS: OSMOLALITY, URINE 413 mOs/kH2O (250-1200)
--- NOTE | 2017-01-27 15:42 | PCM.PNMED ---
Subjective Date of Service Jan 27, 2017 Subjective Overnight: No acute events noted. Continued electrolyte replacement. Today: The patient denies any recent history of risky sexual behavior or illicit drug use to explain elevated liver enzymes consistent with hepatitis. The patient denies heavy alcohol use recently. She does state that she has been dehydrated recently and has not been eating nearly as much over the last month since having an unfortunate stillbirth. The patient understands holding her depression and ADHD medication given her significant electrolyte abnormalities. All questions were answered. Exam Vital Signs Vital Sign - Last Date Time Temp Pulse Resp B/P Pulse Ox O2 Delivery O2 Flow Rate FiO2 01/27/17 03:00 36.5 01/27/17 00:22 59 25 110/70 98 Room Air Intake and Output 01/26/17 01/26/17 01/27/17 Cumulative From/Thru 15:00 23:00 07:00 01/26/17 14:11 - 01/27/17 06:02 Intake Total 1000 ml 1000 ml 3156 ml 5156 ml Output Total 1200 ml 1200 ml Balance 1000 ml 1000 ml 1956 ml 3956 ml Intake IV Total 1000 ml 1000 ml 3156 ml 5156 ml Output Urine Total 1200 ml 1200 ml Exam General: Young female, Patient is lying comfortably on bed, AAOX3, not in acute distress, cooperative . Eyes:PERRLA, EOMI, no scleral icterus, noninjected conjunctiva HENT: head normocephalic and atraumatic, moist mucous membranes without central cyanosis Neck: neck supple, non-tender, no lymphadenopathy, trachea midline, no JVD CV: regular rate and rhythm, s1 and s2 heard, radial pulses 2+ and equal bilaterally, no rubs, murmurs or gallops, no edema Lungs: Clear to auscultation bilaterally, no wheezes, rales or rhonchi, no increased work of breathing Abdomen: normoactive bowel sounds on 4Q, soft, non-distended, non-tender to palpation, no organomegally, Skin: warm and dry Neuro: Nonfocal neurologic exam able to move all extremities spontaneously Psych: Flat affect mildly depressed mood : No Carroll catheter in place Lab and Diagnostics Result Diagram: 01/27/17 0447 01/27/17 0447 Additional Diagnostics DateTimeAnalyzed 15:52:00 -_ pH ____7.429 - 7.320 7.420 pCO2 ___42.4__ -mmHg 41.0 51.0 pO2 ___27.0__ -mmHg 24.0 40.0 HCO3- ___27.6__ -mmol/L Assessment & Plan Indu is a 31-year-old female presenting to the emergency department with a chief complaint of numbness/muscle spasms. Likely refeeding syndrome, present on arrival, active - Patient admitted with chief complaints of nausea/vomiting, muscle rigidity. With numerous electrolyte abnormalities including hypokalemia, hypocalcemia, hypomagnesemia - Patient denies any recent significant alcohol use however admits to anorexia over the last month with some weight loss, records indicate that the patient has lost approximately 10 kg over the last month however the this may be partially explained by the unfortunate stillbirth delivery - Consideration for possible serotonin syndrome In combination with elevated liver enzymes and lactic acidosis and her recent history of cross tapering SSRIs , however less likely with no history of fevers - CK 814 on arrival, to be rechecked - Hold antidepressant medications - Nutrition consult Acute Severe hypokalemia, present on arrival, active - Potassium 2.7 on arrival - Calcium gluconate infusions - Patient repleted with 120 mEq however hypocalcemia remains stable at 2.7 possibly consistent with refeeding syndrome - Monitor and replete as necessary Acute Hypocalcemia associated with long QT syndrome, present on arrival, active - Unclear etiology, QTc 607 on arrival - Calcium 7.2 on arrival - Calcium gluconate infusions 2 - Avoid QT prolonging agents - Monitor and replete as necessary Acute hypophosphatemia, present on admission, active - Phosphatase 2.8 at admission - Trended down to 1.8 with IV dextrose and oral feeding consistent with refeeding syndrome - Monitor - Nutrition consult pending Acute Hypomagnesemia, present on arrival, active - Magnesium 0.7 on arrival - Patient initially given 2 g magnesium in the ED, with 4 g magnesium given after admission - Monitor and replete as necessary Acute liver injury, present on arrival, active - Campbell-elevation of liver enzymes AST 278, a OT 119, alkaline phosphatase 169, bilirubin 1.7 at admission - Patient denies any previous history of elevated liver enzymes are everted being discussed with including HELLP syndrome or preeclampsia -- Patient denies any recent unusual behavior like risky sexual activity or illicit drug use - U tox negative, Serum tox negative, serum osmolarity normal and inconsistent with a congested toxic substances - Limited abdominal ultrasound pending - Hepatitis panel pending Lactic acidosis with elevated creatinine kinase and High anion gap metabolic acidosis, present on arrival, active - Lactic acidosis with elevated CK is consistent with diffuse muscle injury and remains positive likely secondary to poor clearance due to liver injury - Likely not rhabdo given elevated CK with UA negative for blood without red blood cells consistent with myoglobin release - Vital signs within normal limits, CBC unremarkable - Patient received 2 L of fluid in ED - Multiple electrolytes currently running - Continue to monitor lactic acid and CK levels Chronic Depression, present on arrival, active -Hold antidepressant medications Chronic attention deficit hyperactive disorder, present on admission, active - Holding outpatient ADHD medications CODE STATUS is full The patient is likely to remain inpatient for several more days until definitive etiology of her numerous electrolyte abnormalities can be distinguished, expect to discharge home without issue. GI Prophylaxis: Not indicated VTE Prophylaxis: Sub-Q Heparin (Unfractionated) Resuscitation Status: CPR: Attempt Resuscitation Clovis España DO Jan 27, 2017 07:20
[2017-01-27 18:44] LABS: Magnesium 1.7 mg/dL (1.6-2.6); Phosphorus 1.1 mg/dL (2.5-4.9)
[2017-01-27] MEDS ORDERED: KCl 40 mEq/D5W 500 mL 40 MEQ in IV Premix 500 EACH IV ONE (19:50)
[2017-01-27] MEDS ORDERED: Potassium Phos (mEq) Inj 40 MEQ in Dextrose 5% 250 ML IV ONE ×2 (19:50→23:30)
[2017-01-28] VITALS (8 sets, daily range): BP systolic 120–133; BP diastolic 71–87; PULSE 61–98; RESP 14–20; O2SAT 96–99
[2017-01-28] MEDS ORDERED: Potassium Phos (mEq) Inj 40 MEQ in Dextrose 5% 500 ML IV ONE ×2 (00:42→14:55)
[2017-01-28] MEDS: 0.9% Sodium Chloride 1,000 ML IV SCH ×2 (03:03→12:59)
[2017-01-28 03:49] LABS: Mean Corpuscular Hemoglobin 30.2 pg (27.0-35.0); Mean Corpuscular Volume 91.2 fL (81-100)
[2017-01-28] MEDS: Heparin 5,000 Unit/mL Inj SUBQ SCH ×3 (04:00→19:31)
[2017-01-28 04:04] LABS: INR 1.35 ratio
[2017-01-28 04:13] LABS: Creatine Kinase 582 U/L (21-215); Magnesium 1.5 mg/dL (1.6-2.6); Phosphorus 2.8 mg/dL (2.5-4.9)
--- NOTE | 2017-01-28 06:22 | NUR ---
Rest/Labs Pt slept throughout the shift with no c/o numbness, cramping, nausea, or vomiting. Pt's AM labs show her Mg to be 1.5, Phos 2.8, K 3.2, Platelets 104, WBC 2.9. K Phos is still currently running at 64ml/hr and PIV site it patent with no redness, pain, or swelling.
[2017-01-28] MEDS: Pantoprazole 20 mg ER24 Tablet PO SCH ×2 (07:52→19:44)
[2017-01-28 08:08] LABS: Hepatitis A Antibody IgM Negative (Negative); Hepatitis B Core Antibody IgM Negative (Negative)
--- NOTE | 2017-01-28 10:00 | NUR ---
Nausea/HR Pt's HR got up to 140's, pt sitting in bed eating. Checked in on her and she said she got nauseated when eating. She thought maybe she was eating too fast and slowed down and that helped. Pt's HR returned back to her normal 60-70's.
--- NOTE | 2017-01-28 13:46 | NUR ---
Social Work: Initial Assessment/Multidisciplinary Rounds D: Per EMR review, pt is a 31 year old female admitted for hypocalcemia, hypokalemia. Patient is [place] [employer] insurance with no supplement, LTC or VA benefits. PCP is ILIR Shepard. NOK is pt's mother, Kelsey Murrieta. Advanced directives not completed- pt declined information from WEB APPLICATION DEVELOPER. Readmit score is high, 5/8. Pt discussed in Multidisciplinary rounds. Capacity for self care discussed; no concerns or needs at this time. EMR reviewed; patient has been having increased depression due to the recent (December 2016) and unexpected demise of her 38 week old fetus. WEB APPLICATION DEVELOPER met with the patient at bedside. Social work/dcp role explained, contact information and discharge planning checklist provided. See initial assessment. Patient is very pleasant found sitting in her hospital gown, eating breakfast. Patient states that she lives in [place] with her mother and father. Patient has a set of 21 month old twins (male and female) which are presently being cared for by her mother. The patient is I at baseline with all of her own ADLs and self care. She reports that she has been "grieving" the loss of her baby and attributes her hospitalization to not eating. The patient states that she is "doing as well as I can." She is not tearful during assessment and states that her twin children "keep me busy and distracted." The patient also states that she has good support from her parents and that her children attending the [facility] for daycare 4 days a week. She finds that this allows her "the time to actually grieve." She reports that she is very open with her mother and finds her to be a big source of support. The patient denies any suicidal ideation, or thoughts of self-harm or killing herself. She denies any symptoms of post- psychosis or impairment. She was provided with a list of community resources including grief and loss support groups and outpatient MH counseling after the loss of her baby. She declined further information from this WEB APPLICATION DEVELOPER although appreciative. She states that she has not yet follow up with community resources but "will do so when the time is right." Patient anticipates discharge home when medically stable and states her mother will transport. She identifies no concerns or needs for discharge. A: Pt who is I at baseline and ambulating I during admission. P: Anticipate no sw needs once medically stable; WEB APPLICATION DEVELOPER to continue to follow to assess for unmet discharge needs. Theresa Encarnacion MSW
--- NOTE | 2017-01-28 14:49 | NUR ---
NUTRITION ASSESSMENT Assess: 31 YO F admitted with hypocalcemia, hypokalemia. Per notes, pt with poor appetite, nausea, & vomiting since her recent stillborn delivery approx. 1 month ago. Consult received for possible refeeding syndrome. Attempted to speak with pt but pt was sleepy and asked RD to come back at another time. Pt with good PO intake X 1 meal. Question if actually refeeding syndrome or if electrolyte abnormalities due to nausea/vomiting and dehydration. Wt loss of 7.9 kg (9% of BW X 1 month) noted, but pt with recent stillborn delivery could account for majority of weight lost. PMHX: ADHA, depression, hyperemesis gravidarum, recent stillborn delivery. DIET: General. PO intake 100% X 1 meal. LABS: K+ 3.2, BUN <2, Cr 0.55, Glu 115, Ca 7.3, Alb 2.7, Mg 1.5, T.bili 1.6, AST 158, ALT 95. MEDICATIONS: Reviewed. GI: No BM noted. SKIN: No issues noted. ANTHROPOMETRICS: Wt: 79.6 kg, BMI 27.5 kg/m2, Admit wt: 76.5 kg. ESTIMATED NEEDS: Calories: 3617-4279 kcal/day (25-30 kcal/kg BW) Protein: 64-95 g/day (0.8-1.2 g/kg BW) NUTRITION DIAGNOSIS: 1) Altered nutrition related lab values related to possible n/v, limited PO intake as evidenced by K+ 3.2, Mg 1.5, Alb 2.7. INTERVENTION: 1) Continue current diet as ordered. 2) Continue to replete electrolytes as necessary. 3) Attempted to speak with pt about lack of appetite, pt asked RD to come back another time. Will attempt to speak with pt again regarding diet history, PO intake, and weight loss. MONITOR/EVALUATE: PO intake, diet tolerance, labs, GI/nutrition status. Follow per moderate nutrition risk guidelines. Addendum: 01/30/17 at [address] Spoke with pt today about her appetite/PO intake. She reported no issues at this time. She has been tolerating 100% of meals during admit. Encourage pt to try to eat at least 3 meal/day with protein included in each meal. Pt verbalized understanding. Will continue to monitor per moderate nutrition risk guidelines
[2017-01-28] MEDS ORDERED: Potassium Chloride 20 mEq SR Tablet PO ONE (14:55)
[2017-01-28] MEDS ORDERED: Calcium GLUCO 10% (mEq) Inj 4.65 MEQ in Dextrose 5% 50 ML IV ONE (14:55)
[2017-01-28] MEDS ORDERED: Magnesium Sulf 4 Gm/100 mL H2O 4 GM in IV Premix 1 EACH IV ONE (14:55)
--- NOTE | 2017-01-28 15:49 | DRSVH ---
PROCEDURE: US ABDOMEN INDICATIONS: acute liver injury TECHNIQUE: Real-time scanning was performed of the abdominal and retroperitoneal organs, with image documentatio n. COMPARISON: None. FINDINGS: Liver length: 19.96 cm Gallbladder Wall Thickness: 2.80 mm CHD: 3.50 mm CBD: 4.70 mm Spleen length: 12.97 cm Right kidney length: 11.08 cm Left kidney length: 11.35 cm Aorta(Proximal): 2.55 cm Aorta(Mid): 1.74 cm Aorta(Distal): 1.66 cm RCIA: 1.00 cm LCIA: 1.15 cm Liver: Liver is normal in size and homogeneous in echotexture. Gallbladder: Gallbladder sludge is present; no gallstones or gallbladder wall thickening. Biliary ducts: Intrahepatic bile ducts are non-dilated. Extrahepatic bile duct caliber is normal. Normal is 6-7 mm or less in diameter, or 10 mm or less post-cholecystectomy. Pancreas: Visualized portions of the pancreas are sonographically normal. Spleen: Spleen is mildly enlarged in size and homogeneous in echotexture. Kidneys: Kidneys are normal in size and echotexture. No hydronephrosis or nephrolithiasis. No katia d masses. Aorta: Visualized aorta is normal in caliber at less than 3 cm. Iliacs: Proximal common iliac arteries are normal in caliber at less than 2.5 cm. IVC: Intrahepatic inferior vena cava is patent. Miscellaneous: No free abdominal fluid. IMPRESSION: 1. Increased hepatic echogenicity noted likely related to fatty infiltration of the liver but other h epatocellular disease cannot be excluded. Recommend clinical correlation. 2. Mild splenomegaly. 3. Gallbladder sludge. Dictated by: Esdras Randle [facility] Interpreted: Cj Best MD on 01/28/2017 at 9:28 Approved by: Cj Best M.D. on 01/28/2017 at 15:47
--- NOTE | 2017-01-28 19:40 | PCM.PNMED ---
Subjective Date of Service Jan 28, 2017 Chele Griggs is a 31-year-old female presenting to the emergency department with a chief complaint of numbness/muscle spasms. Patient's AM labs show her Mg to be 1.5, Phos 2.8, K 3.2, Platelets 104, WBC 2.9. Today, patient states that she feels well overall. She denies muscle spasms and cramping. She notes that she has not been eating much over the past month due to poor appetite. In addition, she states that she has only had 1-2 drinks of alcohol recently and denies binge drinking. On ROS, she denies headaches, visual changes, chest pain, SOB, nausea, vomiting, abdominal pain, and dysuria.She states that she has been tolerating her diet well. Patient notes that she misses her children. Overnight: No acute events noted. Continued electrolyte replacement. Per nursing report, patient slept throughout the shift with no c/o numbness, cramping, nausea, or vomiting. Exam Vital Signs Vital Sign - Last Date Time Temp Pulse Resp B/P Pulse Ox O2 Delivery O2 Flow Rate FiO2 01/28/17 03:05 37.4 61 16 126/81 96 Room Air Intake and Output 01/27/17 01/27/17 01/28/17 Cumulative From/Thru 15:00 23:00 07:00 01/26/17 14:11 - 01/28/17 06:19 Intake Total 2759 ml 2834 ml 46843 ml Output Total 700 ml 2600 ml 4500 ml Balance 2059 ml 234 ml 6249 ml Intake Oral 840 ml 700 ml 1540 ml IV Total 1919 ml 2134 ml 9209 ml Output Urine Total 700 ml 2600 ml 4500 ml # Voids 6 6 Exam General: Patient is lying comfortably on bed, AAOX3, not in acute distress, cooperative . HEENT: head normocephalic and atraumatic, PERRLA, EOMI, no scleral icterus, noninjected conjunctiva, dry mucous membranes Neck: neck supple, non-tender, no lymphadenopathy, trachea midline, no JVD CV: regular rate and rhythm, s1 and s2 heard, radial pulses 2+ and equal bilaterally, no rubs, murmurs or gallops, no edema Lungs: Clear to auscultation bilaterally, no wheezes, rales or rhonchi, no increased work of breathing Abdomen: normoactive bowel sounds on 4Q, soft, non-distended, non-tender to palpation, no organomegally, no tenderness to palpation RUQ Skin: warm and dry Musculoskeletal: darklight inspector strength of UE reduced bilaterally, full ROM bilaterally Neuro: Grossly neurologically intact, cranial nerves II through XII intact, no dyskinesia, dysmetria, or dysdiadochokinesia noted, sensation intact in extremities Psych: Normal mood and affect IVs and Medications Medications Reviewed: Medications were reviewed in detail Lab and Diagnostics Laboratory Tests Test 01/27/17 10:10 01/27/17 13:50 01/27/17 18:20 01/28/17 03:34 Potassium Level 2.7mEq/L (3.5-5.2) 2.9mEq/L (3.5-5.2) 3.2mEq/L (3.5-5.2) Osmolality 283 (275-300) Phosphorus Level 1.8mg/dL (2.5-4.9) 1.1mg/dL (2.5-4.9) 2.8mg/dL (2.5-4.9) Magnesium Level 1.9mg/dL (1.6-2.6) 1.7mg/dL (1.6-2.6) 1.5mg/dL (1.6-2.6) Total Creatine Kinase 804U/L (21-215) 582U/L (21-215) Urine Color Dark yellow (YELLOW) Urine Appearance Clear (CLEAR,HAZY) Urine pH 6.5 (5.0-8.0) Urine Specific Norman 1.015 (1.003-1.035) Urine Protein Negativemg/dL (NEG,TRACE) Urine Glucose (UA) Negativemg/dL (NEGATIVE) Urine Ketones Negativemg/dL (NEGATIVE) Urine Occult Blood Negative (NEGATIVE) Urine Nitrite Negative (NEGATIVE) Urine Bilirubin Negative (NEGATIVE) Urine Urobilinogen 8.0mg/dL (NORMAL) Urine Leukocyte Esterase Small (NEGATIVE) Urine RBC 0-2/hpf (0-2) Urine WBC 6-10/hpf (0-5) Urine Epithelial Cells Many/hpf (NONE-MOD) Urine Crystals None seen (NONE SEEN) Urine Bacteria Few/hpf (NONE-FEW) Urine Hyaline Casts None/lpf (NONE) Urine Granular Casts None seen (NONE SEEN) Urine Waxy Casts None seen (NONE SEEN) Urine Red Blood Cell Casts None seen (NONE SEEN) Urine White Blood Cell Casts None seen (NONE SEEN) Urine Mucus None seen (None Seen) Urine Trichomonas None seen (NONE SEEN) Urine Yeast None (NONE SEEN) Urinalysis Comment None Urine Culture Reflexed Indicated Urine Osmolality 413mOs/kH2O (250-1200) Urine Random Creatinine 101mg/dL (16-392) Urine Random Sodium 130mEq/L Lactic Acid Level 2.6mmol/L (0.4-2.0) 2.0mmol/L (0.4-2.0) White Blood Count 2.9th/mm3 (3.8-10.1) Red Blood Count 3.41mil/mm3 (3.90-5.20) Hemoglobin 10.3g/dL (12.0-15.6) Hematocrit 31.1% (35.0-46.0) Mean Corpuscular Volume 91.2fL (81-100) Mean Corpuscular Hemoglobin 30.2pg (27.0-35.0) Mean Corpuscular Hemoglobin Concent 33.1% (32.0-37.0) Red Cell Distribution Width 13.6% (12.3-15.4) Platelet Count 104bil/L (150-400) Prothrombin Time 14.5sec (8.1-12.5) Prothromb Time International Ratio 1.35ratio Activated Partial Thromboplast Time 30.4sec (22.8-33.0) Sodium Level 139mEq/L (134-144) Chloride Level 102mEq/L (97-108) Carbon Dioxide Level 22mmol/L (18-29) Blood Urea Nitrogen < 2mg/dL (6-20) Creatinine 0.55mg/dL (0.57-1.00) Estimat Glomerular Filtration Rate 187mL/min (>59) Glucose Level 115mg/dL (60-99) Calcium Level 7.3mg/dL (8.5-10.1) Total Bilirubin 1.6mg/dL (0.0-1.2) Aspartate Amino Transf (AST/SGOT) 158U/L (0-50) Alanine Aminotransferase (ALT/SGPT) 95U/L (0-32) Alkaline Phosphatase 116U/L (25-150) Total Protein 4.8g/dL (6.4-8.4) Albumin 2.7g/dL (3.4-5.0) Microbiology 01/26/17 Blood Culture - Preliminary, Resulted NO GROWTH AFTER 24 HOURS 01/27/17 Urine Culture - Preliminary, Resulted No growth to date Result Diagram: 01/28/17 0334 01/28/17 0334 Additional Diagnostics DateTimeAnalyzed 15:52:00 -_ pH ____7.429 - 7.320 7.420 pCO2 ___42.4__ -mmHg 41.0 51.0 pO2 ___27.0__ -mmHg 24.0 40.0 HCO3- ___27.6__ -mmol/L Assessment & Plan Idnu is a 31-year-old female presenting to the emergency department with a chief complaint of numbness/muscle spasms. Likely refeeding syndrome, present on arrival, active - Patient admitted with chief complaints of nausea/vomiting, muscle rigidity. With numerous electrolyte abnormalities including hypokalemia, hypocalcemia, hypomagnesemia - Patient denies any recent significant alcohol use however admits to anorexia over the last month with some weight loss, records indicate that the patient has lost approximately 10 kg over the last month however the this may be partially explained by the unfortunate intrauterine demise delivery - Consideration for possible serotonin syndrome In combination with elevated liver enzymes and lactic acidosis and her recent history of cross tapering SSRIs , patient meets Warren criteria - CK 814 on arrival, to be rechecked - Hold antidepressant medications but psych has been consulted to reassess meds - Nutrition consult Acute Severe hypokalemia, present on arrival, active - Potassium 2.7 on arrival - Calcium gluconate infusions - Monitor and replete as necessary Acute Hypocalcemia associated with long QT syndrome, present on arrival, active - Unclear etiology, QTc 607 on arrival - Calcium 7.2 on arrival - Calcium gluconate infusions 2 - Avoid QT prolonging agents - Monitor and replete as necessary Acute hypophosphatemia, present on admission, active - Phosphatase 2.8 at admission - Trended down to 1.8 with IV dextrose and oral feeding consistent with refeeding syndrome - Monitor - Nutrition consult pending Acute Hypomagnesemia, present on arrival, active - Magnesium 0.7 on arrival - Patient initially given 2 g magnesium in the ED, with 4 g magnesium given after admission - Monitor and replete as necessary Acute liver injury, present on arrival, active - Campbell-elevation of liver enzymes AST 278, a OT 119, alkaline phosphatase 169, bilirubin 1.7 at admission - Patient denies any previous history of elevated liver enzymes with previous also considering possible HELLP syndrome or preeclampsia - Patient denies any recent unusual behavior like risky sexual activity or illicit drug use - U tox negative, Serum tox negative, serum osmolarity normal and inconsistent with a congested toxic substances - Limited abdominal ultrasound: Increased hepatic echogenicity, mild splenomegaly, gallbladder sludge - Hepatitis panel negative Lactic acidosis with elevated creatinine kinase and High anion gap metabolic acidosis, present on arrival, active - Lactic acidosis with elevated CK is consistent with diffuse muscle injury and remains positive likely secondary to poor clearance due to liver injury - Likely not rhabdo given elevated CK with UA negative for blood without red blood cells consistent with myoglobin release - Vital signs within normal limits, CBC unremarkable - Patient received 2 L of fluid in ED - Multiple electrolytes currently running - Continue to monitor lactic acid and CK levels Chronic Depression, present on arrival, active -Hold antidepressant medications -Consulted psych for recommendations on medications Chronic attention deficit hyperactive disorder, present on admission, active - Holding outpatient ADHD medications CODE STATUS is full The patient is likely to remain inpatient for several more days until definitive etiology of her numerous electrolyte abnormalities can be distinguished, expect to discharge home without issue. Pain Evaluation: Adequate Pain Control GI Prophylaxis: Not indicated VTE Prophylaxis: Sub-Q Heparin (Unfractionated) Resuscitation Status: CPR: Attempt Resuscitation Attending Statement The patient was seen and examined together with Dr. Snider on 01/28/17 and I have added additional information to the note above. Kathy Snider DO Jan 28, 2017 07:40 Merissa Prince DO Jan 29, 2017 15:20
[2017-01-29] VITALS (7 sets, daily range): BP systolic 105–134; BP diastolic 66–84; PULSE 70–82; RESP 15–16; O2SAT 96–98
[2017-01-29] MEDS: 0.9% Sodium Chloride 1,000 ML IV SCH ×3 (00:09→21:45)
[2017-01-29] MEDS: Heparin 5,000 Unit/mL Inj SUBQ SCH ×3 (00:09→20:31)
[2017-01-29 03:22] LABS: BASOPHILS % (AUTO) 0.4 % (0-3); EOSINOPHILS % (AUTO) 1.6 % (0-5); MONOCYTES % (AUTO) 13.8 % (4-12); Mean Corpuscular Hemoglobin 30.4 pg (27.0-35.0); Mean Corpuscular Volume 91.6 fL (81-100); NEUTROPHILS % (AUTO) 48.6 % (40-74); Platelet Count 148 bil/L (150-400)
[2017-01-29 03:46] LABS: Creatine Kinase 292 U/L (21-215); Magnesium 1.7 mg/dL (1.6-2.6); Phosphorus 3.3 mg/dL (2.5-4.9)
--- NOTE | 2017-01-29 05:45 | NUR ---
Sleep Pt reports goal of care is to sleep. Care clustered for limited interruption. Better sleep tonight pe rpt report. Care ongoing
[2017-01-29] MEDS ORDERED: Magnesium Sulf 2 Gm/50mL Water 2 GM in IV Premix 1 EACH IV ONE (07:40)
[2017-01-29] MEDS: Pantoprazole 20 mg ER24 Tablet PO SCH ×2 (08:36→20:31)
[2017-01-29] MEDS ORDERED: Potassium Chloride 20 mEq SR Tablet PO ONE (13:20)
--- NOTE | 2017-01-29 13:22 | PCM.PNMED ---
Subjective Date of Service Jan 29, 2017 Chele Griggs is a 31-year-old female presenting to the emergency department with a chief complaint of numbness/muscle spasms. Today, patient notes that she feels tired and misses her children. She denies any muscle aches, spasms or weakness. She denies headaches, visual changes, chest pain, shortness of breath, nausea, vomiting, abdominal pain, and dysuria. Overnight, her goals was just to get enough sleep with minimal interruptions. There were no acute events overnight. Exam Vital Signs Vital Sign - Last Date Time Temp Pulse Resp B/P Pulse Ox O2 Delivery O2 Flow Rate FiO2 01/29/17 05:41 70 01/28/17 23:54 37.4 18 128/86 96 Room Air Intake and Output 01/28/17 01/28/17 01/29/17 Cumulative From/Thru 15:00 23:00 07:00 01/26/17 14:11 - 01/29/17 06:27 Intake Total 2701 ml 1170 ml 22002 ml Output Total 3050 ml 2950 ml 61743 ml Balance -349 ml -1780 ml 4670 ml Intake Oral 1340 ml 700 ml 3580 ml IV Total 1361 ml 470 ml 30339 ml Output Urine Total 3050 ml 2950 ml 26739 ml # Voids 1 7 # Bowel Movements 1 1 Exam General: Patient is lying comfortably on bed, AAOX3, not in acute distress, cooperative . 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 reduced bilaterally, full ROM bilaterally Neuro: Grossly neurologically intact, cranial nerves II through XII intact, no dyskinesia, dysmetria, or dysdiadochokinesia noted, sensation intact in extremities Psych: Normal mood and affect IVs and Medications Medications Reviewed: Medications were reviewed in detail Lab and Diagnostics Laboratory Tests Test 01/28/17 12:06 01/29/17 02:45 Potassium Level 3.3mEq/L (3.5-5.2) 3.9mEq/L (3.5-5.2) White Blood Count 4.9th/mm3 (3.8-10.1) Red Blood Count 4.04mil/mm3 (3.90-5.20) Hemoglobin 12.3g/dL (12.0-15.6) Hematocrit 37.0% (35.0-46.0) Mean Corpuscular Volume 91.6fL (81-100) Mean Corpuscular Hemoglobin 30.4pg (27.0-35.0) Mean Corpuscular Hemoglobin Concent 33.2% (32.0-37.0) Red Cell Distribution Width 14.4% (12.3-15.4) Platelet Count 148bil/L (150-400) Neutrophils (%) (Auto) 48.6% (40-74) Lymphocytes (%) (Auto) 35.2% (14-46) Monocytes (%) (Auto) 13.8% (4-12) Eosinophils (%) (Auto) 1.6% (0-5) Basophils (%) (Auto) 0.4% (0-3) Sodium Level 139mEq/L (134-144) Chloride Level 100mEq/L (97-108) Carbon Dioxide Level 22mmol/L (18-29) Blood Urea Nitrogen < 2mg/dL (6-20) Creatinine 0.46mg/dL (0.57-1.00) Estimat Glomerular Filtration Rate 230mL/min (>59) Glucose Level 158mg/dL (60-99) Lactic Acid Level 2.9mmol/L (0.4-2.0) Calcium Level 8.0mg/dL (8.5-10.1) Phosphorus Level 3.3mg/dL (2.5-4.9) Magnesium Level 1.7mg/dL (1.6-2.6) Total Bilirubin 2.6mg/dL (0.0-1.2) Aspartate Amino Transf (AST/SGOT) 91U/L (0-50) Alanine Aminotransferase (ALT/SGPT) 88U/L (0-32) Alkaline Phosphatase 137U/L (25-150) Total Creatine Kinase 292U/L (21-215) Total Protein 5.3g/dL (6.4-8.4) Albumin 3.0g/dL (3.4-5.0) Microbiology 01/26/17 Blood Culture - Preliminary, Resulted No growth at 2 days; culture examined... 01/27/17 Urine Culture - Final, Complete Mixed Urogenital Salome Result Diagram: 01/29/17 0245 01/29/17 0245 X-Rays, CTs and MRIs Abdominal ultrasound on 01/28/2017 IMPRESSION: 1. Increased hepatic echogenicity noted likely related to fatty infiltration of the liver but other hepatocellular disease cannot be excluded. Recommend clinical correlation. 2. Mild splenomegaly. 3. Gallbladder sludge. Additional Diagnostics DateTimeAnalyzed 15:52:00 -_ pH ____7.429 - 7.320 7.420 pCO2 ___42.4__ -mmHg 41.0 51.0 pO2 ___27.0__ -mmHg 24.0 40.0 HCO3- ___27.6__ -mmol/L Assessment & Plan Indu is a 31-year-old female presenting to the emergency department with a chief complaint of numbness/muscle spasms. Likely refeeding syndrome, present on arrival, active - Patient admitted with chief complaints of nausea/vomiting, muscle rigidity. With numerous electrolyte abnormalities including hypokalemia, hypocalcemia, hypomagnesemia - Patient denies any recent significant alcohol use however admits to anorexia over the last month with some weight loss, records indicate that the patient has lost approximately 10 kg over the last month however the this may be partially explained by the unfortunate intrauterine demise delivery - Consideration for possible serotonin syndrome In combination with elevated liver enzymes and lactic acidosis and her recent history of cross tapering SSRIs , patient meets Warren Criteria for Serotonin Syndrome - CK 814 on arrival, CK improved to 292 - Hold antidepressant medications but psych has been consulted to reassess meds case discussed with Dr. Benoit today 01/29/17 - Tolerating diet Acute Severe hypokalemia, present on arrival, active - Potassium 2.7 on arrival. Current potassium 3.9 - Calcium gluconate infusions. Corrected calcium improved to 8.8 - Monitor and replete as necessary Acute Hypocalcemia associated with long QT syndrome, present on arrival, active - Unclear etiology, QTc 607 on arrival - Calcium 7.2 on arrival - Calcium gluconate infusions 2 - Avoid QT prolonging agents. Consulted psychiatry for recommendations on antidepressant medications - Monitor and replete as necessary Acute hypophosphatemia, present on admission, active - Phosphatase 2.8 at admission - Trended down to 1.8 with IV dextrose and oral feeding consistent with refeeding syndrome - Monitor Acute Hypomagnesemia, present on arrival, active - Magnesium 0.7 on arrival - Patient initially given 2 g magnesium in the ED, with 4 g magnesium given after admission - Monitor and replete as necessary Acute liver injury, present on arrival, active - Campbell-elevation of liver enzymes AST 278, a OT 119, alkaline phosphatase 169, bilirubin 1.7 at admission - Patient denies any previous history of elevated liver enzymes are everted being discussed with including HELLP syndrome or preeclampsia -- Patient denies any recent unusual behavior like risky sexual activity or illicit drug use - U tox negative, Serum tox negative, serum osmolarity normal and inconsistent with a congested toxic substances - Abdominal ultrasound shows Increased hepatic echogenicity noted likely related to fatty infiltration of the liver but other hepatocellular disease cannot be excluded. Mild splenomegaly. and Gallbladder sludge - Hepatitis panel unremarkable Lactic acidosis with elevated creatinine kinase and High anion gap metabolic acidosis, present on arrival, active - Lactic acidosis with elevated CK is consistent with diffuse muscle injury and remains positive likely secondary to poor clearance due to liver injury - Likely not rhabdo given elevated CK with UA negative for blood without red blood cells consistent with myoglobin release - Vital signs within normal limits, CBC unremarkable - Patient received 2 L of fluid in ED - Multiple electrolytes currently running - Continue to monitor lactic acid and CK levels Chronic Depression, present on arrival, active -Hold antidepressant medications -Consulted psych for recommendations on medications Chronic attention deficit hyperactive disorder, present on admission, active - Holding outpatient ADHD medications CODE STATUS is full The patient is likely to remain inpatient until tomorrow, expect to discharge home without issue. GI Prophylaxis: Not indicated VTE Prophylaxis: Sub-Q Heparin (Unfractionated) Resuscitation Status: CPR: Attempt Resuscitation Attending Statement The patient was seen and examined together with Dr. Snider on 01/29/17 and I have added additional information to the note above. Kathy Snider DO Jan 29, 2017 06:58 Merissa Prince DO Jan 29, 2017 15:24
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
--- NOTE | 2017-01-29 18:03 | NUR ---
electrolyte replacement/activity Mag sulfate IV given this AM as well as PO K+ this afternoon. Lab called to report they need 10ml of whole blood to complete a seratonin level that was requested for blood from 01/26. They do not have enough blood on hand to complete the lab as requested. Dr Newman notified. Cardiac: Denies CP. Tele SR 70-80s Resp: Denies SOB. SpO2 96% on RA GI/: Denies n/v/d Neuro: A&O x 3. CAMACHO with CMS intact
[2017-01-30 04:04] VITALS: BP 110/67; PULSE 75; RESP 16; O2SAT 98
[2017-01-30 04:06] LABS: EOSINOPHILS % (AUTO) 2.2 % (0-5); MONOCYTES % (AUTO) 13.1 % (4-12); Mean Corpuscular Hemoglobin 30.9 pg (27.0-35.0); Mean Corpuscular Volume 93.5 fL (81-100); NEUTROPHILS % (AUTO) 33.2 % (40-74); Platelet Count 174 bil/L (150-400)
[2017-01-30] MEDS: Heparin 5,000 Unit/mL Inj SUBQ SCH ×2 (04:23→11:37)
[2017-01-30 04:54] LABS: Magnesium 1.6 mg/dL (1.6-2.6); Phosphorus 2.5 mg/dL (2.5-4.9)
[2017-01-30 05:12] LABS: Creatine Kinase 127 U/L (21-215)
--- NOTE | 2017-01-30 06:12 | NUR ---
Uneventful night Pt denies chest pain/pressure, shortness of breath and n/v/d and and pain. "You guys are killing me with that!" Referring to q8hr Heparin. Pt agreeable after educating risks and benefits. Tele: SR ST hr low 100s per measurement and sensing technician. Care continues. VSS.
[2017-01-30 07:47] VITALS: BP 134/91; PULSE 95; RESP 18; O2SAT 97
[2017-01-30] MEDS: Pantoprazole 20 mg ER24 Tablet PO SCH (07:57)
[2017-01-30 10:49] VITALS: PULSE 97
[2017-01-30 11:41] VITALS: BP 125/74; PULSE 108; RESP 18; O2SAT 97
--- NOTE | 2017-01-30 12:30 | PCM.DIMED ---
Kathy Snider DO 01/30/17 0959: Discharge Instructions Date of Service Jan 30, 2017 Dates of Hospitalization Jan 26, 2017 at 17:11 Discharge Diagnosis Discharge Diagnosis Likely refeeding syndrome Possible Serotonin syndrome Acute Severe hypokalemia Acute Hypocalcemia associated with long QT syndrome Acute hypophosphatemia Acute Hypomagnesemia Acute liver injury Lactic acidosis with elevated creatinine kinase and High anion gap metabolic acidosis Chronic Depression Chronic attention deficit hyperactive disorder Medication Instructions Additional med instructions Please do not take your Adderrall until you can be reassessed by your primary care doctor. Diet Discharge Diet: No restrictions Activity Discharge Activity: No restrictions Call your provider Call your provider for: Fever or Chills, Shortness of breath, Bleeding, Chest pain, Vomitting, Excessive diarrhea, Weakness (unilateral) Patient Instructions Patient Instructions When you presented to the Emergency room, you were having muscle numbness and cramping as well as nausea and vomiting. We heather various lab work and found that various electrolytes such as calcium, potassium, magnesium and phosphorus were all low. We also found that the EKG of your heart showed some changes that were not normal and that certain labs show injury to the liver. We believe that these abnormalities could be due to the fact that you were on 2 antidepressants, Zoloft and Celexa. It is possible that two antidepressants combined caused you to have serotonin syndrome, which means that you may have had too much serotonin which causes symptoms of muscle pain and cramps that you described. In addition, with all that you have been through during this last month, it is completely understandable that you had no appetite and your tendency was not to eat well. On top of that, you were on Adderrall, which could have also contributed to you not eating well. All of these combined can cause refeeding syndrome. When we don't eat for a period of time, our body uses a lot of the electrolytes that we need. These electrolytes control your heart and your brain , which is why we were concerned. Throughout your hospital stay, we repleted the electrolytes that were low. The EKG of your heart showed improvement and your liver also showed improvement. Your primary care doctor will see you in a 1-2 weeks and draw labs to make sure that these are all continuing to improve. Per recommendations of the Psychiatry, we started you on Zoloft 50 mg. We recommend that you not take your Adderrall until you can see your primary care doctor and she can reassess your labs. The psychiatrist also spoke with you about the possibility of getting in touch with a therapist or with grief/loss support groups. Please consider these and talk to your primary care doctor about more resources/options Follow-up plan Follow-up with your primary care provider to recheck your labs and your EKG. She can make recommendations on whether or not to continue taking Adderrall. She can also make sure that you are not having any adverse reactions from Zoloft. Follow-up Provider: Misty Bonds Follow-up with PCP in: 1 week (1-2 weeks ) Merissa Prince DO 01/30/17 1607: Discharge Instructions Attending's Statement The patient was seen and examined together with Dr. Snider on 01/30/17 and I agree with the history, exam and plan as outlined in the note above. Kathy Snider DO Jan 30, 2017 09:59 Merissa Prince DO Jan 30, 2017 16:07
[2017-01-30] MEDS ORDERED: SERT50TA9 PO (12:31)
--- NOTE | 2017-01-30 13:50 | NUR ---
Social Work: Discharge/Multidisciplinary Rounds D: Pt discussed in multidisciplinary rounds; the patient is medically stable for discharge home with her family. Capacity for self-care addressed; the patient is capable of self-care and has also experienced a significant loss which has contributed to her loss of appetite and reason for hospitalization. OCCUP THER has offered outpatient resources which she has declined and providers have also discussed this with the patient. OCCUP THER met with the patient at bedside to confirm her discharge plan and assess for unmet needs. She continues to decline out patient resources and states that she has these at home if needed. She has good support from her family and denies suicidal ideation, plan, intent. A: Pt who is I at baseline. P: Pt to discharge home via POV and no further sw needs. Pt's mother to transport. MELISSA Flaherty
--- NOTE | 2017-01-30 14:05 | NUR ---
Pt discharged home with Mother at 1400hrs Pt denies any pain this shift, she denies any symptoms following administration of PO Zoloft this am. Pt did have an emisis at approx 0700hrs, but then stated she felt better. She ate breakfast and lunch 100%. She has been taking fluids well. Pt has been self caring in the room up mobilizing. She was in SR/ST, mostly in the 90's but she did go up into the 100's when walking around and using the bathroom. Pt was quiet but co operative, answered questions appropriately. Mother offered good support. Discharge instructions given both written and verbal. Pt is aware of her follow up appointment and I showed her the info on the DC instructions.
--- NOTE | 2017-01-30 14:31 | PCM.DC.MED ---
Discharge Summary Date of Service Jan 30, 2017 Dates of Hospitalization Date of Hospital Admission Jan 26, 2017 at 17:11 Date of Discharge: Jan 30, 2017 Providers: Admitting Physician: Oleg Lomeli MD Primary Care Physician: Misty Bonds Attending Physician: Merissa Prince DO Diagnosis at Time of Discharge Diagnosis at Time of Discharge Likely refeeding syndrome Serotonin syndrome Acute Severe hypokalemia Acute Hypocalcemia associated with long QT syndrome Acute hypophosphatemia Acute Hypomagnesemia Acute liver injury Lactic acidosis with elevated creatinine kinase and High anion gap metabolic acidosis Chronic Depression Chronic attention deficit hyperactive disorder Consultations Psychiatry, Dr. Hobson was consulted. Procedures XRay, CTs & MRIs Abdominal ultrasound on 01/28/2017 IMPRESSION: 1. Increased hepatic echogenicity noted likely related to fatty infiltration of the liver but other hepatocellular disease cannot be excluded. Recommend clinical correlation. 2. Mild splenomegaly. 3. Gallbladder sludge. Other Diagnostics DateTimeAnalyzed 15:52:00 -_ pH ____7.429 - 7.320 7.420 pCO2 ___42.4__ -mmHg 41.0 51.0 pO2 ___27.0__ -mmHg 24.0 40.0 HCO3- ___27.6__ -mmol/L Brief History Indu Murrieta is a 31 yr old female past medical history of ADHD and depression who presents to the ED with complaints of muscle spasms and numbness of her upper extremities and lower extremities bilaterally. She states that it started the day prior to admission but has progressively gotten worsened, with her hands and legs clenching, making it difficult for her to walk. In addition , she reports nausea, vomiting, and dehydration but denies diarrhea and abdominal pain that started about 3 days prior to admission. She has been unable to tolerate oral intake and her appetite has decreased. She reports that she was started on Zoloft on and has been tapering off of citalopram. She does not recall the Zoloft dose that she takes but notes that she is now taking 20 mg of citalopram. She states that she had one alcoholic beverage a few days prior to admission, but denies any alcohol use since then, and denies drug use About one month ago she had a stillborn childbirth and this is why she has been placed on antidepressants. In the ED vitals signs were as follows: TEmp 36.6, Pulse 104, RR 20, BP 127/87, O2 95% on RA. ABGs reveal pH: 7.429, pCO2: 42, pO2: 27.0, pHCO3: 27.6, cBase: 3.33. EKG reveals: Prolonged QT interval because of her hypocalcemia. Rate of 144. QT 390. QTc 604. Labs were significant for potassium of 2.7, Calcium of 7.2 , Magnesium of 0.7, Lactic acid of 6.7, AST of 278, ALT of 119, Alk Phos of 169 , Total CK 814. Toxicology was negative for salicylates, acetaminophen, alcohol. Throughout her hospital stay, we continued to replete her electrolyte abnormalities. We believe that her symptoms and electrolyte abnormalities could be due to refeeding syndrome as the patient notes that she had not been eating well over the past month. In addition, it is also likely that she may have experienced serotonin syndrome given her elevated liver enzymes and lactic acidosis, myoclonus and her recent history of cross tapering SSRIs. Patient meets Warren Criteria for Serotonin Syndrome. Over the course, there was improvement in her liver function tests and creatinine kinase trended down. In addition, psychiatry was consulted and they recommended starting patient on Zoloft 50 mg daily, but should discontinue use of Adderall until a future time. The patient may restart Adderall after her labs returned to normal and her checked by her primary care physician. Patient will be discharged to home in stable condition with close follow-up with her PCP. Hospital Course Indu is a 31-year-old female presenting to the emergency department with a chief complaint of numbness/muscle spasms. Likely refeeding syndrome, present on arrival, active - Patient admitted with chief complaints of nausea/vomiting, muscle rigidity. With numerous electrolyte abnormalities including hypokalemia, hypocalcemia, hypomagnesemia - Patient denies any recent significant alcohol use however admits to anorexia over the last month with some weight loss, records indicate that the patient has lost approximately 10 kg over the last month however the this may be partially explained by the unfortunate intrauterine demise delivery - Consideration for possible serotonin syndrome In combination with elevated liver enzymes and lactic acidosis and her recent history of cross tapering SSRIs , patient meets Warren Criteria for Serotonin Syndrome - CK 814 on arrival, CK improved to 292 - Held antidepressant medications. However, per recommendations of psychiatry, Dr. Hobson, patient was started on Zoloft 50 mg daily. - Tolerated diet -Patient will require close follow-up with PCP to recheck various electrolyte abnormalities, EKG, and LFTs Acute Severe hypokalemia, present on arrival, active - Potassium 2.7 on arrival. Potassium at discharge 4.3 - Calcium gluconate infusions. Corrected calcium improved to 8.8 - Monitored and repleted as necessary Acute Hypocalcemia associated with long QT syndrome, present on arrival, active - Unclear etiology, QTc 607 on arrival - Calcium 7.2 on arrival - Calcium gluconate infusions 2 - Avoided QT prolonging agents. Consulted psychiatry for recommendations on antidepressant medications - Monitored and repleted as necessary Acute hypophosphatemia, present on admission, active - Phosphorus 2.8 at admission - Trended down to 1.8 with IV dextrose and oral feeding consistent with refeeding syndrome - Phosphorus was replaced and on discharge was 2.5 Acute Hypomagnesemia, present on arrival, active - Magnesium 0.7 on arrival - Patient initially given 2 g magnesium in the ED, with 4 g magnesium given after admission - Monitored and repleted as necessary Acute liver injury, present on arrival, active - Campbell-elevation of liver enzymes AST 278, a OT 119, alkaline phosphatase 169, bilirubin 1.7 at admission - Patient denies any previous history of elevated liver enzymes are everted being discussed with including HELLP syndrome or preeclampsia -- Patient denies any recent unusual behavior like risky sexual activity or illicit drug use - U tox negative, Serum tox negative, serum osmolarity normal and inconsistent with a congested toxic substances - Abdominal ultrasound shows Increased hepatic echogenicity noted likely related to fatty infiltration of the liver but other hepatocellular disease cannot be excluded. Mild splenomegaly. and Gallbladder sludge - Hepatitis panel unremarkable -Liver function panel improved upon discharge Lactic acidosis with elevated creatinine kinase and High anion gap metabolic acidosis, present on arrival, active - Lactic acidosis with elevated CK is consistent with diffuse muscle injury and remains positive likely secondary to poor clearance due to liver injury - Likely not rhabdo given elevated CK with UA negative for blood without red blood cells consistent with myoglobin release - Vital signs within normal limits, CBC unremarkable - Patient received 2 L of fluid in ED - Patient received multiple electrolyte replacements - Continued to monitor lactic acid and CK levels Chronic Depression, present on arrival, active -Hold antidepressant medications -Consulted psych for recommendations on medications -They suggested Zoloft 50 mg daily in addition to outpatient counseling Chronic attention deficit hyperactive disorder, present on admission, active - Held outpatient ADHD medications -Need to re-evaluate with PCP before restarting CODE STATUS is full Exam Vital Signs (Last) Date Time Temp Pulse Resp B/P Pulse Ox O2 Delivery O2 Flow Rate FiO2 01/30/17 11:41 36.7 108 18 125/74 97 Room Air Exam General: Patient is lying comfortably on bed, AAOX3, not in acute distress, cooperative . 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, full ROM bilaterally Neuro: Grossly neurologically intact, cranial nerves II through XII intact, no dyskinesia, dysmetria, or dysdiadochokinesia noted, sensation intact in extremities Psych: Normal mood and affect Test 01/26/17 14:25 01/26/17 16:28 01/26/17 17:32 01/26/17 20:10 Ionized Calcium (Calculated) 3.04mg/dL (3.5-5.2) Lipase 89U/L (13-60) Salicylates Level < 3.0ug/mL (30-250) Acetaminophen Level < 15.0ug/mL Rx (10-25) Alcohols < 10mg/dL (0-10) Parathyroid Hormone (Intact) 40pg/mL (15-65) Hold Boss Top Tube Received (Received) Urine Opiates Screen Negative Urine Methadone Screen Negative Urine Barbiturates Screen Negative Urine Amphetamines Screen Positive Urine Benzodiazepines Screen Negative Urine Cocaine Metabolite Screen Negative Urine Cannabinoids Screen Negative Test 01/26/17 22:44 01/27/17 04:47 01/27/17 10:10 01/27/17 13:50 Hepatitis A IgM Antibody Negative (Negative) Hepatitis B Surface Antigen Negative (Negative) Hepatitis B Core IgM Antibody Negative (Negative) Hepatitis C Antibody <0.1s/co ratio (0.0-0.9) Hepatitis C Comment Comment (.) Triglycerides Level 93mg/dL (0-149) Cholesterol Level 150mg/dL (100-199) LDL Cholesterol, Calculated 83.400mg/dL (0-99) VLDL Cholesterol 18.600mg/dL HDL Cholesterol 48mg/dL (>39) Cholesterol/HDL Ratio 3.13 (0.0-4.4) Thyroid Stimulating Hormone (TSH) 2.530uIU/mL (0.450-4.500) HCG Beta Subunit < 0.500mIU/mL Osmolality 283 (275-300) HIV (1&2) Ag and Ab, 4th Generation Non reactive (Non Reactive) Urine Color Dark yellow (YELLOW) Urine Appearance Clear (CLEAR,HAZY) Urine pH 6.5 (5.0-8.0) Urine Specific [place] 1.015 (1.003-1.035) Urine Protein Negativemg/dL (NEG,TRACE) Urine Glucose (UA) Negativemg/dL (NEGATIVE) Urine Ketones Negativemg/dL (NEGATIVE) Urine Occult Blood Negative (NEGATIVE) Urine Nitrite Negative (NEGATIVE) Urine Bilirubin Negative (NEGATIVE) Urine Urobilinogen 8.0mg/dL (NORMAL) Urine Leukocyte Esterase Small (NEGATIVE) Urine RBC 0-2/hpf (0-2) Urine WBC 6-10/hpf (0-5) Urine Epithelial Cells Many/hpf (NONE-MOD) Urine Crystals None seen (NONE SEEN) Urine Bacteria Few/hpf (NONE-FEW) Urine Hyaline Casts None/lpf (NONE) Urine Granular Casts None seen (NONE SEEN) Urine Waxy Casts None seen (NONE SEEN) Urine Red Blood Cell Casts None seen (NONE SEEN) Urine White Blood Cell Casts None seen (NONE SEEN) Urine Mucus None seen (None Seen) Urine Trichomonas None seen (NONE SEEN) Urine Yeast None (NONE SEEN) Urinalysis Comment None Urine Culture Reflexed Indicated Urine Osmolality 413mOs/kH2O (250-1200) Urine Random Creatinine 101mg/dL (16-392) Urine Random Sodium 130mEq/L Test 01/28/17 03:34 01/29/17 02:45 01/30/17 03:54 01/30/17 08:53 Prothrombin Time 14.5sec (8.1-12.5) Prothromb Time International Ratio 1.35ratio Activated Partial Thromboplast Time 30.4sec (22.8-33.0) Hemoglobin A1c 5.5% (4.8-5.6) Uric Acid 3.0mg/dL (2.6-7.2) Gamma Glutamyl Transpeptidase 243IU/L (0-60) White Blood Count 5.8th/mm3 (3.8-10.1) Red Blood Count 4.34mil/mm3 (3.90-5.20) Hemoglobin 13.4g/dL (12.0-15.6) Hematocrit 40.6% (35.0-46.0) Mean Corpuscular Volume 93.5fL (81-100) Mean Corpuscular Hemoglobin 30.9pg (27.0-35.0) Mean Corpuscular Hemoglobin Concent 33.0% (32.0-37.0) Red Cell Distribution Width 14.9% (12.3-15.4) Platelet Count 174bil/L (150-400) Neutrophils (%) (Auto) 33.2% (40-74) Lymphocytes (%) (Auto) 50.2% (14-46) Monocytes (%) (Auto) 13.1% (4-12) Eosinophils (%) (Auto) 2.2% (0-5) Basophils (%) (Auto) 1.0% (0-3) Sodium Level 138mEq/L (134-144) Chloride Level 99mEq/L (97-108) Carbon Dioxide Level 24mmol/L (18-29) Blood Urea Nitrogen < 2mg/dL (6-20) Creatinine 0.51mg/dL (0.57-1.00) Estimat Glomerular Filtration Rate 204mL/min (>59) Glucose Level 123mg/dL (60-99) Lactic Acid Level 2.2mmol/L (0.4-2.0) Calcium Level 9.5mg/dL (8.5-10.1) Phosphorus Level 2.5mg/dL (2.5-4.9) Magnesium Level 1.6mg/dL (1.6-2.6) Total Bilirubin 2.7mg/dL (0.0-1.2) Aspartate Amino Transf (AST/SGOT) 101U/L (0-50) Alanine Aminotransferase (ALT/SGPT) 86U/L (0-32) Alkaline Phosphatase 173U/L (25-150) Total Creatine Kinase 127U/L (21-215) Total Protein 6.0g/dL (6.4-8.4) Albumin 3.0g/dL (3.4-5.0) Procalcitonin 0.16ng/mL (0.00-0.08) Potassium Level 4.3mEq/L (3.5-5.2) Discharge Medications Discharge Medications Ferrous Sulfate (Ferrous Sulfate) 325 Mg Tablet 325 MG PO BIDWM (Reported) Sertraline HCl (Sertraline) 50 Mg Tablet 50 MG PO DAILY Prescribed by: Roz ANDERSON Additional med instructions Please do not take your Adderrall until you can be reassessed by your primary care doctor. Followup Plan Disposition: Patient will be discharged to home in stable condition but will require close monitoring by her PCP Follow-up plan Follow-up with your primary care provider to recheck your labs and your EKG. She can make recommendations on whether or not to continue taking Adderrall. She can also make sure that you are not having any adverse reactions from Zoloft. Discharge Diet: No restrictions Discharge Activity: No restrictions Patient Instructions When you presented to the Emergency room, you were having muscle numbness and cramping as well as nausea and vomiting. We heather various lab work and found that various electrolytes such as calcium, potassium, magnesium and phosphorus were all low. We also found that the EKG of your heart showed some changes that were not normal and that certain labs show injury to the liver. We believe that these abnormalities could be due to the fact that you were on 2 antidepressants, Zoloft and Celexa. It is possible that two antidepressants combined caused you to have serotonin syndrome, which means that you may have had too much serotonin which causes symptoms of muscle pain and cramps that you described. In addition, with all that you have been through during this last month, it is completely understandable that you had no appetite and your tendency was not to eat well. On top of that, you were on Adderrall, which could have also contributed to you not eating well. All of these combined can cause refeeding syndrome. When we don't eat for a period of time, our body uses a lot of the electrolytes that we need. These electrolytes control your heart and your brain , which is why we were concerned. Throughout your hospital stay, we repleted the electrolytes that were low. The EKG of your heart showed improvement and your liver also showed improvement. Your primary care doctor will see you in a 1-2 weeks and draw labs to make sure that these are all continuing to improve. Per recommendations of the Psychiatry, we started you on Zoloft 50 mg. We recommend that you not take your Adderrall until you can see your primary care doctor and she can reassess your labs. The psychiatrist also spoke with you about the possibility of getting in touch with a therapist or with grief/loss support groups. Please consider these and talk to your primary care doctor about more resources/options Follow-up Provider: Misty Bonds Follow-up with PCP in: 1 week (1-2 weeks ) Time spent Greater than 35 minutes Attending Statement The patient was seen and examined together with Dr. Snider on 01/30/17 and I have added additional information to the note above. copies to: Misyt Bonds Alexa N DO Jan 30, 2017 14:30 Merissa Prince DO Jan 30, 2017 16:26
== END 2017-01-30 14:02 | disposition home or self-care (01) | DRG 425 ==
LOC: SED 14:09 → CCU 17:11 → PCC 01-27 10:52
PROVIDERS: ADMIT Internal Medicine; ATTEND Internal Medicine
PROC: 4A033R1 Measurement of Arterial Saturation, Peripheral, Percutaneous Approach (ICD-10-PCS; principal; 2017-01-26)
DX: E83.51 Hypocalcemia (principal); K72.00 Acute and subacute hepatic failure without coma; F33.9 Major depressive disorder, recurrent, unspecified; E87.2 Acidosis; E87.6 Hypokalemia; M62.838 Other muscle spasm; T73.0XXS Starvation, sequela; T43.225A Adverse effect of selective serotonin reuptake inhibitors, initial encounter; E83.42 Hypomagnesemia; E83.39 Other disorders of phosphorus metabolism; F90.0 Attention-deficit hyperactivity disorder, predominantly inattentive type; Z87.891 Personal history of nicotine dependence; I45.81 Long QT syndrome; F50.89 Other specified eating disorder; F41.1 Generalized anxiety disorder; R11.2 Nausea with vomiting, unspecified